=== PATIENT | female | born 1935 | race Caucasian/White ===

== ENCOUNTER 2016-09-26 23:07 | Emergency (ER) | payer OTHER ==
[~2016-09-26] VITALS: Ht 175.3 cm; Wt 68.0 kg
--- NOTE | ~2016-09-26 | EKG ---
[place] [address] [facility] [place] [address] ELECTROCARDIOGRAM REPORT Name: SUE PRINCE Room #: [facility]#: [id number] Admission: 09/26/16 Attend Phys: Discharge: 09/27/16 Date of : 31 Report #: [id number] THIS REPORT FOR: //name// [facility] ED Test Date: 2016-09-26 Test Time: 23:20:42 Pat Name: SUE PRINCE Department: Room: Gender: F Sec Reporting Consultant: gm : 1935 Requested By: Zoila Oleary Order Number: [id number] MD: Joao Pickering Measurements Intervals [place] Rate: 96 P: -5 NC: 148 QRS: -55 QRSD: 113 T: 63 QT: 357 QTc: 452 Interpretive Statements Sinus rhythm LAD, consider left anterior fascicular block Compared to ECG 03/23/2014 20:21:30 Ventricular premature complex(es) no longer present Electronically Signed On 09-27-2016 8:57:18 CDT by Joao Pickering [email or web address] <ELECTRONICALLY SIGNED> By: Joao Pickering MD, [facility] 09/27/16 0857 2320 19 Joao Pickering MD, [facility] /EPI
[~2016-09-26 23:07] MED LIST: ADULT LOW DOSE81 MG PO; BENICAR20 MG PO; BIAXIN 500 MG500 M1 PO; BONIVA150 MG PO; CITRACAL + BON1 EACH PO; CO Q-10100 MG PO; COLACE100 MG PO; CYMBALTA60 MG PO; DIOVAN160 MG PO; DIOVAN40 MG PO; FISH OIL 1,0001 EAC5 PO; FLONASE 0.05%50 MCG NASAL; IBUPROFEN 400400 M1 OR; LASIX 40 MG TAB40 M1 PO; LASIX 40 MG TAB40 MG OR; LEVOXYL100 MCG PO; MAGNESIUM250 M1 PO; MINOCYCLINE 5050 M1 PO; MOM OR; MUCINEX TA600 MG/TAB OR; MUCINEX600 MG PO; MULTIVITAMINS PO; NEURONTIN 300300 M1 PO; NEXIUM40 MG PO; PEPCID40 MG PO; PREDNISONE 5 MG5 M1 PO; PREDNISONE50 MG PO; PROAIR HFA8.5 GM IH; PROCARDIA XL30 MG PO; PROTONIX40 M2 PO; QVAR HFA 880 MCG/UN1 INH; SIMVASTATIN10 MG PO; SINGULAIR 10 MG10 M1 PO; SPIRIVA INH; STOOL SOFTENER50 MG PO; SYMBICORT160 MCG/4. OR; VENTOLIN17 GM OR; VITAMIN D1000 UNI1 PO; ZITHROMYCIN PO
[2016-09-26] MEDS ORDERED: PREDNISOLONE 5 M5 M1 PO (23:19)
[2016-09-26 23:45] LABS: HEMOGLOBIN 11.1 gm/dL (12.0-15.0); MCH 28.6 pg (26.0-34.0); MCHC 32.6 g/dL (28.0-37.0); MCV 87.8 fL (80.0-100.0); RBC 3.88 mil/uL (4.20-5.00); RDW 17.6 % (10.5-14.5); WBC 11.7 thou/uL (4.0-11.0)
[2016-09-26 23:54] LABS: ANION GAP 9 mmol/L (7-16); BUN 30 mg/dL (7-18); CALCIUM 9.2 mg/dL (8.5-10.1); CHLORIDE 103 mmol/L (98-107); CO2 28 mmol/L (21-32); CREATININE 1.2 mg/dL (0.6-1.0); GLUCOSE 114 mg/dL (74-106); POTASSIUM 3.8 mmol/L (3.5-5.1); SODIUM 140 mmol/L (136-145)
[2016-09-27 00:05] LABS: ALBUMIN 3.7 g/dL (3.4-5.0); ALKALINE PHOSPHATASE 77 U/L (46-116); SGOT 25 U/L (15-37); SGPT 26 U/L (30-65); TOTAL BILIRUBIN 0.5 mg/dL (<0.1-1.0); TOTAL PROTEIN 7.6 g/dL (6.4-8.2); TROPONIN-I < 0.04 ng/mL (<0.04-0.07)
[2016-09-27] MEDS ORDERED: TESSALON PERLE100 MG PO (01:00)
[2016-09-27] MEDS ORDERED: ZPAK PO (01:00)
[2016-09-27] MEDS ORDERED: PREDNISONE 20 M20 MG PO (01:00)
== END 2016-09-27 01:23 | disposition home or self-care (01) ==
LOC: ER 23:07
PROVIDERS: Physician Assistant
DX: J44.1 Chronic obstructive pulmonary disease with (acute) exacerbation (principal); E03.9 Hypothyroidism, unspecified; K21.9 Gastro-esophageal reflux disease without esophagitis; F32.9 Major depressive disorder, single episode, unspecified; I10 Essential (primary) hypertension; Z96.652 Presence of left artificial knee joint; Z90.710 Acquired absence of both cervix and uterus; Z88.0 Allergy status to penicillin; Z88.7 Allergy status to serum and vaccine; Z88.1 Allergy status to other antibiotic agents; Z88.5 Allergy status to narcotic agent; Z87.891 Personal history of nicotine dependence; Z88.4 Allergy status to anesthetic agent

== ENCOUNTER → 2016-11-23 | Outpatient (CLI) | payer OTHER ==
[~2016-11-23] MED LIST changes: +PREDNISOLONE 5 M5 M1 PO; +PREDNISONE 20 M20 MG PO; +TESSALON PERLE100 MG PO; +ZPAK PO
== END ==
LOC: RAD 12:52
DX: Z12.31 Encounter for screening mammogram for malignant neoplasm of breast (principal)

== ENCOUNTER → 2017-09-05 | Outpatient (CLI) | payer OTHER ==
[~2017-09-05] VITALS: Ht 170.2 cm; Wt 75.9 kg
[~2017-09-05] MED LIST changes: +ALBUTEROL2.5 MG/31 INH; +AVAPRO300 MG PO; +AZITHROMYCIN 2250 MG PO; +LIPITOR10 MG PO; +OMEGA 3 1,0001 EACH PO; -PREDNISOLONE 5 M5 M1 PO; +PREDNISONE 10 M10 M1 PO; +ZANTAC 150MG T150 MG PO
--- NOTE | ~2017-09-05 | HPC ---
[facility] [place] [address] PAIN MANAGEMENT CONSULTATION Name: SUE PRINCE Room #: [facility].#: [id number] Admission: 09/05/17 Attend Phys: Angel Beth DO Discharge: Date of : 31 Report #: [id number] THIS REPORT FOR: //name// CC: Justin Beth DATE OF SERVICE: 09/05/2017 CHIEF COMPLAINT: Low back pain, bilateral lower extremity pain and paresthesias. HISTORY OF PRESENT ILLNESS: As you know, the patient is an 82-year-old female, who had acute onset of low back pain, bilateral lower extremity pain, presented on 07/16/2017. She indicates pain began without inciting injury or trauma. The patient indicates she has had previous surgeries by Dr. Bangura, 3-level laminectomy with some improvement in symptoms. Unfortunately, her pain did begin to return. At our last visit, we sent the patient for imaging study as there had been no new imaging since her surgery and I was concerned about some changes in the lumbar area. She returns to review those findings and discuss options for treatment. Today, the patient is reporting pain at a level of 5/10, states her pain is constant, aching and burning, exacerbated with sleeping on her side, lying down, improves with getting up, repositioning. She returns to discuss options for treatment and to review her MRI. ALLERGIES: PENICILLIN, CEPHALOSPORINS, MORPHINE, CODEINE, TETANUS, PROCAINE, CEFDINIR, MOXIFLOXACIN. CURRENT MEDICATIONS: See extensive list in chart. SOCIAL HISTORY: The patient is a reformed smoker, she quit 22 years ago. She admits 2 alcohol beverages per day. 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 She is not receiving workmen's compensation and she is not involved in litigation in regards to pain. IMAGING: MRI lumbar spine obtained 09/02/2017 shows moderate diffuse disk bulge at L1-L2, mild central canal stenosis, moderate bilateral neural foraminal narrowing at L2-L3, moderate diffuse disk bulge, mild spinal canal stenosis, moderate left severe right neural foraminal narrowing at L3-L4, moderate diffuse bulge, moderate narrowing of the right lateral recess, central canal stenosis, severe left and moderate right neural foraminal narrowing at L4-L5, moderate bilateral facet hypertrophy, moderate diffuse disk bulge, moderate central canal stenosis, severe left, moderate to severe right neural foraminal narrowing at L5-S1, moderate disk bulge, no spinal canal stenosis, moderate bilateral neural foraminal stenosis. PQRS, the patient has osteoarthritis, no rheumatoid arthritis. She rates pain intensity of 5/10. She is a fall risk, [place] [address] PAIN MANAGEMENT CONSULTATION Name: SUE PRINCE Room #: [facility]#: [id number] Admission: 09/05/17 Attend Phys: Angel Beth DO Discharge: Date of : 31 Report #: [id number] had a fall in the last 3 months. She does use ambulatory devices. She is not on blood thinner. She is treated for hypertension. She is not on opioids. She does have a moderate opioid risk assessment. Functional assessment 48/70 indicating moderate to severe interference of daily activities secondary to pain. PHYSICAL EXAMINATION: VITAL SIGNS: Blood pressure 153/88, pulse 88, respiratory rate 20, unlabored. The patient is 98% on room air. Height 5 feet 7 inches tall, weight 167.4 pounds, BMI calculated at 26.2. GENERAL: Well-developed, well-nourished, well-hydrated 82-year-old female, appears stated age, placing current pain score around 5/10. HEENT: Normocephalic, atraumatic. Pupils equal, round, reactive to light. EXTREMITIES: Show no clubbing, no cyanosis, no edema. MUSCULOSKELETAL: Seated straight leg raising negative. Supine straight leg raising positive on the right. DREW test negative. Modified Gaenslen's positive for axial low back pain. Ankle clonus negative. Babinski is negative. Gait appears to be antalgic. Kyphotic posture noted in standing position. ASSESSMENT: 1. Lumbar radiculopathy. 2. Spinal stenosis of the lumbar spine. 3. Displacement of lumbar intervertebral disk with radiculopathy. 4. Lumbosacral spondylosis with radiculopathy. 5. Intractable pain. PLAN: 1. The patient returns today in followup visit where we have reviewed in its entirety the MRI of the lumbar spine obtained on 09/02/2017. The patient and I went over the MRI and how it correlated to her symptoms. It does appear symptoms are related to the L4-L5 level and a moderate stenosis noted here. We discussed the options of treatment once again with the patient, which would include physical therapy, stretching exercises, medication management with neuropathic pain medications, epidural injections, spinal cord stimulator therapy and surgical options. After reviewing the risks and benefits of all proposed treatment options and given the findings on MRI, the patient chose to undergo lumbar epidural injection. The patient was advised risks and benefits of a lumbar epidural injection. These risks include, but are not necessarily limited to bleeding, bruising, infection, worsening pain, no relief of pain, also risk of temporary or permanent muscle weakness, temporary or permanent paralysis, possible . The patient states understood and wished to proceed. 2. No medication changes made at today's visit. The patient to continue current medical therapy as previously prescribed. 3. We will see the patient back in followup visit in approximately [address] [address] PAIN MANAGEMENT CONSULTATION Name: SUE PRINCE Room #: [facility].#: [id number] Admission: 09/05/17 Attend Phys: Angel Beth DO Discharge: Date of : 33 Report #: [id number] that time, review the efficacy of the epidural injection and determine if next in the series of epidural injections would be recommended. PROCEDURE NOTE DESCRIPTION OF PROCEDURE: L5-S1 right paramedian epidural steroid injection under fluoroscopic guidance. This is the first procedure of the first series that the patient is undergoing. After obtaining written consent, the patient was taken back to the fluoroscopy suite, placed in a prone position with pillow under the abdomen to decrease lumbar lordosis. The skin overlying the lumbosacral area was then prepped and draped in aseptic fashion. The L5-S1 vertebral interspace was then identified by AP fluoroscopy. The skin and subcutaneous tissue overlying the target site of injection was anesthetized with 3 mL 1% lidocaine. A 20 gauge 3-1/2 inch Tuohy needle was then advanced under fluoroscopic guidance towards the epidural space using a right paramedian approach. The epidural space was identified using loss of resistance to air technique. After negative aspiration for heme or cerebrospinal fluid, a total of 1 mL of Omnipaque was injected. A lumbar epidurogram was confirmed using both AP and lateral fluoroscopy. After negative aspiration for heme or cerebrospinal fluid, 5 mL of a solution containing 2 mL 40 mg per mL, 80 mg total triamcinolone, 3 mL lidocaine 1% was injected in increments. Contrast spread was noted posterior epidural space. The needle was then retracted approximately half way and needle tract flushed with 1 mL of 1% lidocaine. Needle was then removed. There were no apparent sensory or motor deficits in the lower extremity following the procedure. A sterile bandage was placed over the injection site. The heart rate, pulse, oximetry and blood pressure were continuously monitored after the procedure. There were no complications. The patient tolerated the procedure well and was carefully escorted to the recovery room in stable condition. There were no apparent complications. After meeting discharge criteria, the patient was then discharged home. <ELECTRONICALLY SIGNED> By: Angel Beth DO 09/12/17 0810 1555 09 Angel Beth DO /nt
[2017-09-05 11:30] VITALS: BP 153/88
== END | disposition home or self-care (01) ==
LOC: PAIN 06:19
DX: M51.16 Intervertebral disc disorders with radiculopathy, lumbar region (principal); M48.061 Spinal stenosis, lumbar region without neurogenic claudication; M47.27 Other spondylosis with radiculopathy, lumbosacral region; G89.29 Other chronic pain; J44.9 Chronic obstructive pulmonary disease, unspecified; Z88.0 Allergy status to penicillin; Z88.8 Allergy status to other drugs, medicaments and biological substances; Z87.891 Personal history of nicotine dependence; Z98.890 Other specified postprocedural states; Z79.899 Other long term (current) drug therapy; Z79.891 Long term (current) use of opiate analgesic; Z79.4 Long term (current) use of insulin; Z79.82 Long term (current) use of aspirin

== ENCOUNTER 2017-09-07 04:38 | Inpatient (IN) | payer OTHER ==
[~2017-09-07] VITALS: Ht 170.2 cm; Wt 81.6 kg
[2017-09-07] VITALS (7 sets, daily range): BP systolic 97–161; BP diastolic 75–93
--- NOTE | ~2017-09-07 | 2DMMODE ---
[facility] [address] [place] [address] 2 D/M-MODE ECHOCARDIOGRAM Name: NIKISUE Cheri Room #: 358-P [facility] IN ..#: [id number] Admission: 09/07/17 Attend Phys: Juancho Rodriguez MD Discharge: Date of : 31 Date of Service: 09/07/17 1216 Report #: [id number] THIS REPORT FOR: //name// APPROVED REPORT Study performed: 09/07/2017 10:28:09 EXAM: Comprehensive 2D, Doppler, and color-flow Echocardiogram Patient Location: Echo lab Room #: [facility] Status: routine BSA: 1.93 HR: 93 bpm BP: 161/81 mmHg Other Information Study Quality: Good Indications COPD Dyspnea Hypertension/HDD 2D Dimensions RVDd: 32.07 mm LVEF(%): 50.26 (>50%) IVSd: 11.69 (7-11mm) LVOT Diam: 22.14 (18-24mm) LVDd: 54.06 mm PWd: 11.96 (7-11mm) Ascending Ao: 28.92 (22-36mm) LVDs: 40.12 (25-40mm) Aortic Root: 31.71 mm IVC: 25.00 mm Woo's LVEF: 50.26 % Volumes Left Atrial Volume (Systole) Single Plane 4CH: 85.94 mL Single Plane 2CH: 70.15 mL LA ESV Index: 43.00 mL/m2 Aortic Valve AoV Peak Jf.: 1.64 m/s AO Peak Gr.: 10.80 mmHg LVOT Max P.74 mmHg LVOT Max V: 1.09 m/s CHRISSY Vmax: 2.55 cm2 AI Vmax: 3.38 m/s AI [place]: 1.62 m/s2 AI PHT: 606.88 ms [facility] [place] [address] 2 D/M-MODE ECHOCARDIOGRAM Name: SUE PRINCE Room #: 358-P [facility]#: [id number] Admission: 09/07/17 Attend Phys: Juancho Rodriguez MD Discharge: Date of : 31 Date of Service: 09/07/17 1216 Report #: [id number] Mitral Valve E/A Ratio: 0.8 MV Decel. Time: 228.55 ms MV E Max Jf.: 1.28 m/s MV A Jf.: 1.60 m/s MV PHT: 66.28 ms IVRT: 103.81 ms Pulmonary Valve PV Peak Jf.: 2.07 m/s PV Peak Gr.: 22.16 mmHg Pulmonary Vein P Vein S: 0.50 m/s P Vein A: 0.48 m/s P Vein D: 0.36 m/s P Vein A Dur.: 175.3 msec P Vein S/D Ratio: 1.39 Tricuspid Valve TR Peak Jf.: 3.73 m/s TR Peak Gr.: 55.57 mmHg PA Pressure: 65.00 mmHg Left Ventricle The left ventricle is normal size. Mild concentric left ventricular hypertrophy. Left ventricular systolic function is mildly decreased. LVEF is 45%. Grade I - abnormal relaxation pattern. Right Ventricle The right ventricle is normal size. The right ventricular systolic function is normal. Atria Left atrium is dilated. Right atrium is at the upper limits of normal. Aortic Valve The aortic valve is normal in structure. Aortic valve is calcified. Trace aortic regurgitation. There is no aortic valvular stenosis. Mitral Valve The mitral valve is normal in structure. Mild to moderate mitral regurgitation. No evidence of mitral valve stenosis. Tricuspid Valve The tricuspid valve is normal in structure. There is mild tricuspid [facility] [address] [place] [address] 2 D/M-MODE ECHOCARDIOGRAM Name: SUE PRINCE Room #: 358-P [facility]#: [id number] Admission: 09/07/17 Attend Phys: Juancho Rodriguez MD Discharge: Date of : 31 Date of Service: 09/07/17 1216 Report #: [id number] regurgitation. Estimated PAP 65 mmHg. There is moderate pulmonary hypertension. Pulmonic Valve The pulmonary valve is normal in structure. Trace pulmonic regurgitation. Great Vessels The aortic root is normal in size. IVC is dilated and collapses <50% with inspiration. Pericardium There is no pericardial effusion. <Conclusion> The left ventricle is normal size. Mild concentric left ventricular hypertrophy. Left ventricular systolic function is mildly decreased. Grade I - abnormal relaxation pattern. The right ventricle is normal size. Left atrium is dilated. Trace aortic regurgitation. Mild to moderate mitral regurgitation. There is mild tricuspid regurgitation. Estimated PAP 65 mmHg. There is moderate pulmonary hypertension. <ELECTRONICALLY SIGNED> By: Mark Llamas MD 09/07/171215 15 15 Mark Llamas MD /INF
--- NOTE | ~2017-09-07 | P ---
[facility] [place] [place] [address] PROCEDURE REPORT Name: SUE PRINCE Room #: 358-P [facility] IN .R.#: [id number] Admission: 09/07/17 Attend Phys: Juancho Rodriguez MD Discharge: Date of : 31 Report #: [id number] THIS REPORT FOR: //name// CC: Rubi Rodriguez DATE OF SERVICE: 09/11/2017 PROCEDURE: Fiberoptic bronchoscopy and bronchioalveolar lavage of the left lower lobe and washings of the other airways. INDICATION: Severe bronchiectasis with exacerbation, mucous plugging, ASA classification class 3. PROCEDURE NOTATION: After discussing risks and benefits of the planned procedure with the patient, she desired to proceed. After obtaining informed consent, she was brought to engineering lab technician 3 where she was placed on continuous cardiopulmonary monitoring and supplemental oxygen. She was then given 4% lidocaine nebulized to anesthetize the upper respiratory tract. Once accomplished, she received conscious sedation. Total of 4 mg of Versed and 25 mcg of fentanyl were titrated during the procedure to provide adequate sedation. Once accomplished, bronchoscope was passed through an oral biteblock until the vocal cords were visualized. Lidocaine 1% was instilled in the vocal cords and then in the trachea to provide topical anesthesia. The airways were then surveyed. FINDINGS: Mainstem, lobar, segmental and subsegmental bronchi were explored. Scattered mucous plugging was noted predominantly in the left lower lobe. Initially some washing of the right middle lobe was obtained; however, this induced some bleeding just with minor suction trauma from the bronchoscope. The oozing had stopped at the end of this. Bronchoscope was then passed into the left lower lobe where a lavage was performed. Slightly bloody cloudy return was returned from the lavage. The patient tolerated well. No noted complications. IMPRESSION: Mucous plugging and bronchiectasis with exacerbation, status post bronchoscopy with lavage. PLAN: Await microbiologic and cytologic tests. By: [id number] [id number] Roscoe Naylor MD /nt
--- NOTE | ~2017-09-07 | EKG ---
[address] [address] ELECTROCARDIOGRAM REPORT Name: SUE PRINCE Room #: 358-P [facility] IN ..#: [id number] Admission: 09/07/17 Attend Phys: Juancho Rodriguez MD Discharge: Date of : 33 Report #: [id number] THIS REPORT FOR: //name// [facility] ED Test Date: 2017-09-07 Test Time: 04:54:30 Pat Name: SUE PRINCE Department: Room: Gender: F Lawn Care Specialist: KHUSHBU : 1935 Requested By: Marlys Sullivan Order Number: [id number] MD: Roman Poole Measurements Intervals [place] Rate: 91 P: 65 AK: 170 QRS: -40 QRSD: 109 T: 72 QT: 378 QTc: 466 Interpretive Statements Sinus rhythm Ventricular premature complex Left atrial enlargement Left ventricular hypertrophy Compared to ECG 09/26/2016 23:20:42 Ventricular premature complex(es) now present Atrial abnormality now present Left ventricular hypertrophy now present Electronically Signed On 09-07-2017 8:23:01 CDT by Roman Poole [email or web address] <ELECTRONICALLY SIGNED> By: Roman Poole MD 09/07/17 0823 0454 0454 Roman Poole MD /EPI
[~2017-09-07 04:38] MED LIST changes: -MUCINEX TA600 MG/TAB OR; +MUCINEX1200 MG PO; +STOOL SOFTENER100 MG PO; -STOOL SOFTENER50 MG PO
[2017-09-07 04:55] LABS: BE(vivo) -0.6 mmol/L (-2 to +3); HCO3 23.3 mmol/L (22.0-26.0); PCO2 35.5 mmHg (35.0-45.0); pH 7.435 (7.360-7.450); sO2 98.9 % (92.0-98.0)
[2017-09-07 04:57] LABS: ABSOLUTE NEUTROPHILS 5.8 thou/uL (1.4-8.2); BASOPHILS 0.7 % (0.0-2.0); EOSINOPHILS 1.1 % (0.0-3.0); HEMATOCRIT 28.8 % (37.0-47.0); HEMOGLOBIN 9.1 gm/dL (12.0-15.0); LYMPHOCYTES 17.4 % (24.0-44.0); MCH 24.9 pg (26.0-34.0); MCHC 31.5 g/dL (28.0-37.0); MCV 79.1 fL (80.0-100.0); MONOCYTES 10.9 % (1.0-8.0); PLATELET COUNT 279 thou/uL (150-400); POLYS 69.9 % (36.0-66.0); RBC 3.64 mil/uL (4.20-5.00); RDW 17.3 % (10.5-14.5); WBC 8.2 thou/uL (4.0-11.0)
[2017-09-07 05:14] LABS: CALCIUM 8.9 mg/dL (8.5-10.1); CREATININE 1.1 mg/dL (0.6-1.0); POTASSIUM 4.1 mmol/L (3.5-5.1)
[2017-09-07 08:51] LABS: TSH 0.977 uIU/mL (0.358-3.740)
[2017-09-07 09:05] LABS: % SATURATION 6 % (20-39); IRON 20 ug/dL (50-170); TIBC 325 ug/dL (250-450)
[2017-09-07 09:20] LABS: FOLIC ACID 18.7 ng/mL (8.6-58.9)
[2017-09-07 17:20] LABS: URINE BILIRUBIN NEGATIVE (Negative); URINE BLOOD NEGATIVE (Negative); URINE CLARITY CLEAR; URINE COLOR YELLOW; URINE GLUCOSE-RANDOM* NEGATIVE (Negative); URINE KETONES NEGATIVE (Negative); URINE NITRITE-REFLEX NEGATIVE (Negative); URINE PROTEIN (DIPSTICK) TRACE (Negative); URINE SPECIFIC GRAVITY 1.015 (1.005-1.035); URINE UROBILINOGEN 0.2 E.U./dl (0.2-1.0)
[2017-09-07 17:21] LABS: URINE LEUKOCYTES-REFLEX 1+ (Negative)
[2017-09-07 17:31] LABS: BACTERIA-REFLEX None Seen /HPF (None Seen); CASTS None Seen /LPF (None Seen); CRYSTALS None Seen /LPF (None Seen); SQUAMOUS 0-3 Few /LPF (0-3); URINE RBC 0-2 Rare /HPF (0-2); URINE WBC-REFLEX 6-15 Few /HPF (0-5)
[2017-09-08 03:32] VITALS: BP 171/89
[2017-09-08 06:09] LABS: ABSOLUTE NEUTROPHILS 8.3 thou/uL (1.4-8.2); BASOPHILS 0.1 % (0.0-2.0); HEMATOCRIT 27.1 % (37.0-47.0); HEMOGLOBIN 8.9 gm/dL (12.0-15.0); LYMPHOCYTES 5.3 % (24.0-44.0); MCH 25.9 pg (26.0-34.0); MCHC 32.9 g/dL (28.0-37.0); MCV 78.8 fL (80.0-100.0); PLATELET COUNT 250 thou/uL (150-400); POLYS 88.6 % (36.0-66.0); RBC 3.44 mil/uL (4.20-5.00); RDW 17.7 % (10.5-14.5); WBC 9.3 thou/uL (4.0-11.0)
[2017-09-08 06:15] LABS: CALCIUM 8.8 mg/dL (8.5-10.1); MAGNESIUM 2.2 mg/dL (1.8-2.4); POTASSIUM 4.4 mmol/L (3.5-5.1)
[2017-09-08 07:55] VITALS: BP 155/80
[2017-09-08 11:04] VITALS: BP 144/71
[2017-09-08 11:31] VITALS: BP 146/87
[2017-09-08 16:14] VITALS: BP 119/68
[2017-09-08 20:10] VITALS: BP 133/69
[2017-09-09 03:29] LABS: HEMOGLOBIN 8.8 gm/dL (12.0-15.0); MCH 25.1 pg (26.0-34.0); MCHC 31.4 g/dL (28.0-37.0); RDW 17.9 % (10.5-14.5); WBC 11.3 thou/uL (4.0-11.0)
[2017-09-09 03:45] LABS: CALCIUM 9.3 mg/dL (8.5-10.1); POTASSIUM 5.2 mmol/L (3.5-5.1)
[2017-09-09 04:22] LABS: PLATELET COUNT ND thou/uL (150-400)
[2017-09-09 05:00] VITALS: BP 146/81
[2017-09-09 08:06] VITALS: BP 141/81
[2017-09-09 11:04] VITALS: BP 134/75
[2017-09-09 15:52] VITALS: BP 130/76
[2017-09-09 20:00] VITALS: BP 144/73
[2017-09-10 04:48] VITALS: BP 142/72
[2017-09-10 06:53] LABS: HEMATOCRIT 27.5 % (37.0-47.0); HEMOGLOBIN 8.9 gm/dL (12.0-15.0); MCH 25.5 pg (26.0-34.0); MCHC 32.3 g/dL (28.0-37.0); MCV 78.9 fL (80.0-100.0); RBC 3.49 mil/uL (4.20-5.00); RDW 17.6 % (10.5-14.5)
[2017-09-10 07:08] LABS: CALCIUM 8.7 mg/dL (8.5-10.1); POTASSIUM 4.3 mmol/L (3.5-5.1)
[2017-09-10 08:00] VITALS: BP 143/76
[2017-09-10 12:00] VITALS: BP 147/80
[2017-09-10 16:00] VITALS: BP 145/67
[2017-09-11 04:50] VITALS: BP 136/80
[2017-09-11 09:18] VITALS: BP 137/76
[2017-09-11 12:00] VITALS: BP 145/84
[2017-09-11 17:33] VITALS: BP 145/71
[2017-09-11 19:45] VITALS: BP 144/77
[2017-09-12 04:00] VITALS: BP 144/70
[2017-09-12 04:07] LABS: ADENOVIRUS Negative (Negative); INFLUENZA A Negative (Negative); INFLUENZA B Negative (Negative); METAPNEUMOVIRUS Negative (Negative); PARAINFLUENZA 1 Negative (Negative); PARAINFLUENZA 2 Negative (Negative); PARAINFLUENZA 3 Negative (Negative); RHINOVIRUS Positive (Negative); RSV A Negative (Negative); RSV B Negative (Negative)
[2017-09-12 06:01] LABS: HEMOGLOBIN 9.1 gm/dL (12.0-15.0); MCH 24.8 pg (26.0-34.0); MCHC 31.5 g/dL (28.0-37.0); MCV 78.8 fL (80.0-100.0); RBC 3.68 mil/uL (4.20-5.00); WBC 15.1 thou/uL (4.0-11.0)
[2017-09-12 06:15] LABS: CALCIUM 8.6 mg/dL (8.5-10.1); POTASSIUM 4.3 mmol/L (3.5-5.1)
[2017-09-12 08:36] VITALS: BP 89/63
[2017-09-12 08:42] VITALS: BP 157/82
[2017-09-12 12:38] VITALS: BP 133/68
[2017-09-12 16:00] VITALS: BP 155/78
[2017-09-12 20:03] VITALS: BP 146/74
[2017-09-13 04:00] VITALS: BP 139/72
[2017-09-13 08:53] VITALS: BP 144/67
[2017-09-13 09:31] LABS: HEMATOCRIT 31.5 % (37.0-47.0); HEMOGLOBIN 10.1 gm/dL (12.0-15.0); MCH 25.2 pg (26.0-34.0); MCHC 32.2 g/dL (28.0-37.0); MCV 78.3 fL (80.0-100.0); RBC 4.02 mil/uL (4.20-5.00); RDW 17.3 % (10.5-14.5); WBC 9.4 thou/uL (4.0-11.0)
[2017-09-13 09:39] LABS: CALCIUM 8.8 mg/dL (8.5-10.1); MAGNESIUM 2.2 mg/dL (1.8-2.4); POTASSIUM 4.7 mmol/L (3.5-5.1)
[2017-09-13 12:29] VITALS: BP 144/67
[2017-09-13 19:36] VITALS: BP 141/80
[2017-09-13 20:04] LABS: BE(vivo) 4.4 mmol/L (-2 to +3); HCO3 27.1 mmol/L (22.0-26.0); PCO2 33.7 mmHg (35.0-45.0); pH 7.524 (7.360-7.450); sO2 98.2 % (92.0-98.0)
[2017-09-14 03:00] VITALS: BP 145/82
[2017-09-14 08:07] VITALS: BP 163/86
[2017-09-14 12:14] VITALS: BP 150/83
[2017-09-14] MEDS ORDERED: CEPACOL SORE T1 EAC8 PO (12:39)
[2017-09-14] MEDS ORDERED: DUONEB 2.5-0.5 M3 ML INH (12:39)
[2017-09-14] MEDS ORDERED: ACETYLCYST200 MG/1 M INH (12:39)
[2017-09-14] MEDS ORDERED: MERREM1 GM IV (12:39)
[2017-09-14] MEDS ORDERED: PREDNISONE 10 M10 MG PO (12:39)
[2017-09-14] MEDS ORDERED: MERREM 500500 MG/12 IV (14:35)
== END 2017-09-14 14:37 | DRG 853 ==
LOC: ER 04:38 → EROBS 05:52 → 3W 05:52
PROVIDERS: Emergency Medicine; Hospitalist; Internal Medicine; Internal Medicine Pulmonary Disease; Nurse Practitioner; Specialist
PROC: 5A09357 Assistance with Respiratory Ventilation, Less than 24 Consecutive Hours, Continuous Positive Airway Pressure (ICD-10-PCS; principal; 2017-09-11)
PROC: 0B9J8ZX Drainage of Left Lower Lung Lobe, Via Natural or Artificial Opening Endoscopic, Diagnostic (ICD-10-PCS; principal; 2017-09-11)
PROC: 5A09357 Assistance with Respiratory Ventilation, Less than 24 Consecutive Hours, Continuous Positive Airway Pressure (ICD-10-PCS; 2017-09-13)
PROC: 5A09357 Assistance with Respiratory Ventilation, Less than 24 Consecutive Hours, Continuous Positive Airway Pressure (ICD-10-PCS; 2017-09-14)
DX: A41.9 Sepsis, unspecified organism (principal); J13 Pneumonia due to Streptococcus pneumoniae; J96.21 Acute and chronic respiratory failure with hypoxia; N17.9 Acute kidney failure, unspecified; T17.590A Other foreign object in bronchus causing asphyxiation, initial encounter; J44.1 Chronic obstructive pulmonary disease with (acute) exacerbation; J98.11 Atelectasis; Z96.653 Presence of artificial knee joint, bilateral; D64.9 Anemia, unspecified; G89.29 Other chronic pain; M54.9 Dorsalgia, unspecified; Z66 Do not resuscitate; I10 Essential (primary) hypertension; K21.9 Gastro-esophageal reflux disease without esophagitis; G62.9 Polyneuropathy, unspecified; I27.20 Pulmonary hypertension, unspecified; Z51.5 Encounter for palliative care; Z90.710 Acquired absence of both cervix and uterus; Z90.12 Acquired absence of left breast and nipple; Z88.6 Allergy status to analgesic agent; Z88.1 Allergy status to other antibiotic agents; Z88.0 Allergy status to penicillin; Z88.8 Allergy status to other drugs, medicaments and biological substances; Z87.891 Personal history of nicotine dependence; Z86.718 Personal history of other venous thrombosis and embolism; Z79.82 Long term (current) use of aspirin; Z79.899 Other long term (current) drug therapy; X58.XXXA Exposure to other specified factors, initial encounter; Y93.89 Activity, other specified; Y92.89 Other specified places as the place of occurrence of the external cause; Y99.8 Other external cause status
CPT/HCPCS: 10779

== ENCOUNTER → 2017-10-08 | Outpatient (CLI) | payer OTHER ==
[~2017-10-08] MED LIST changes: +ACETYLCYST200 MG/1 M INH; +CEPACOL SORE T1 EAC8 PO; +DUONEB 2.5-0.5 M3 ML INH; +MERREM 500500 MG/12 IV; +MERREM1 GM IV; +PREDNISONE 10 M10 MG PO
== END ==
LOC: SLEEPLAB 13:11
DX: G47.33 Obstructive sleep apnea (adult) (pediatric) (principal)

== ENCOUNTER → 2017-10-18 | Outpatient (CLI) | payer OTHER | LOC: RAD 11:36 | DX: R06.00 Dyspnea, unspecified (principal) ==

== ENCOUNTER → 2017-10-24 | Outpatient (CLI) | payer OTHER | LOC: SLEEPLAB 13:23 | DX: G47.33 Obstructive sleep apnea (adult) (pediatric) (principal) ==

== ENCOUNTER → 2017-11-08 | Outpatient (CLI) | payer OTHER | LOC: RAD 14:57 | DX: J98.4 Other disorders of lung (principal) ==

== ENCOUNTER 2018-01-30 04:15 | Inpatient (IN) | payer OTHER ==
[~2018-01-30] VITALS: Ht 170.2 cm; Wt 72.3 kg
--- NOTE | ~2018-01-30 | HC ---
[facility] [place] [address] CONSULTATION Name: SUE PRINCE Room #: 419-P [facility] IN M.R.#: [id number] Admission: 01/30/18 Attend Phys: Deangelo Perez Discharge: Date of : 31 Report #: [id number] THIS REPORT FOR: //name// CC: Justin Perez TYPE OF REPORT: Pulmonary consultation. REFERRAL PHYSICIAN: Deangelo Perez M.D. PRIMARY CARE PHYSICIAN: Justin Edmondson M.D. REASON FOR REFERRAL: Dyspnea. HISTORY OF PRESENT ILLNESS: The patient is an 82-year-old white female with known COPD and bronchiectasis, presents with increasing dyspnea. A Pulmonary consultation was requested. The patient has been followed for COPD, bronchiectasis and sleep apnea in the Pulmonary Department. She has seen Dr. Taye Titus in the past. For her sleep apnea, she is on BiPAP 14/6 cm H2O. She has severe COPD, baseline FEV1 of 0.9 liters or 52% predicted. She has known bronchiectasis. She is normally on 2 liters with exercise and 1 liters with rest. She has Proventil HFA, nebulized albuterol p.r.n., Symbicort 160 mcg 2 puffs twice a day and Spiriva once a day. She was just seen in the pulmonary office on January 07. She was doing fairly well at that time. Her FEV1 on that visit had improved to 1.2 liters or 71% predicted. About 2 weeks ago, she started to notice increasing dyspnea. She had a nonproductive cough. She had a fever of 101 degrees Fahrenheit. With worsening symptoms, she presented to the Emergency Room. Chest x-ray shows mild right lower lobe and left lower lobe infiltrates. Cardiomegaly is present. Otherwise, denies any chest pain or hemoptysis. PAST MEDICAL HISTORY: Notable for bronchiectasis; COPD, gugi-ji-brqjvtnj impairment, chronic O2 at 1 liters and 2 liters with exertion; also component of asthma overlap; coronary artery disease with ischemic cardiomyopathy; ejection fraction 35% on echocardiogram in 2008; gastroesophageal reflux disease; hyperlipidemia; hypertension; hypothyroidism; moderate mitral regurgitation; VIVI, on BiPAP; Raynaud's and spinal stenosis. PAST SURGICAL HISTORY: Notable for bladder suspension surgery, carpal tunnel surgery, hysterectomy, knee arthroplasty, lumbar spinal surgery, mastectomy and [facility] [address] [place] [address] CONSULTATION Name: SUE PRINCE Room #: 419-P [facility] IN [facility]#: [id number] Admission: 01/30/18 Attend Phys: Deangelo Perez Discharge: Date of : 31 Report #: [id number] sinus surgery. ALLERGIES: To CODEINE, which causes hives; PENICILLIN, causes swelling; CHAPO inhibitors, reactions not specified; BETA BLOCKERS, reactions unspecified; CEPHALOSPORINS, reactions unspecified; LIDOCAINE, no reaction specified; SULFA DRUGS, causes severe swelling; TETANUS TOXOID, reaction not specified; LEVOFLOXACIN, causes rash and MORPHINE, causes pruritus. CURRENT HOME MEDICATIONS: Reviewed and is listed in the MAR. FAMILY HISTORY: Notable for mother at the age of 54. Father at the age of 75. 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 She has smoked 1-1/2 packs a day for about 40 years, quit in 1997. She drinks socially. REVIEW OF SYSTEMS: As mentioned above, otherwise 10-point system review negative. PHYSICAL EXAMINATION: GENERAL: She is awake, alert, appears to be mildly dyspneic. Otherwise, in no distress. VITAL SIGNS: Temperature is 97.7 degrees Fahrenheit, pulse is 93, respiratory rate is 16, blood pressure 160/80 mmHg and saturation 99%. HEENT: Unremarkable. NECK: Supple, without any lymphadenopathy or thyromegaly. CHEST: Breath sounds are fair with mild bilateral crackles. Mild wheezes noted. CARDIOVASCULAR: Normal S1 and S2. There are no murmurs or gallop. There is no JVD. There is no carotid bruit. Pulses are 2+/4+ bilaterally. ABDOMEN: Soft and nontender. No organomegaly or masses felt. GENITOURINARY: Deferred. RECTAL: Deferred. EXTREMITIES: There is no edema, cyanosis or clubbing. RADIOLOGICAL DATA: Chest x-ray as mentioned above showing mild bibasilar infiltrates. LABORATORY DATA: Influenza swab is negative. Procalcitonin level of 0.3. Electrolytes: Sodium 134, potassium 3.6, chloride 99, CO2 is 25, BUN is 23 and creatinine is 1.2. WBC 10,100; hemoglobin is 7.5 and platelets are normal and no evidence of bandemia. Troponin is normal. Arterial blood gas revealed pH 7.47, pCO2 of 30 and pO2 of 65 on 2 liters of O2. IMPRESSION: 1. Odbmz-fc-vbwkrxa hypoxic respiratory failure in this 82-year-old white [facility] [address] [place] [address] CONSULTATION Name: SUE PRINCE Room #: 419-P [facility] IN M.R.#: [id number] Admission: 01/30/18 Attend Phys: Deangelo Perez Discharge: Date of : 31 Report #: [id number] female with history of chronic obstructive pulmonary disease/asthma overlap along with bronchiectasis. Chest x-ray shows mild bibasilar infiltrates. Pneumonia is suspected. We will consider community acquired. 2. Chronic obstructive pulmonary disease/questionable asthma overlap, bronchiectasis exacerbation. 3. Febrile illness, as mentioned above, suspect pneumonia, chronic steroids, she is on prednisone 10 mg once a day. 4. Hypothyroidism. 5. Coronary artery disease with ischemic cardiomyopathy, ejection fraction 35%. 6. Mitral regurgitation. 7. Obstructive sleep apnea, on bilevel positive airway pressure. 8. Raynaud's. 9. Spinal stenosis. RECOMMENDATIONS: Agree with plans, corticosteroids, bronchodilators along with broad-spectrum antibiotics. Infectious Disease is involved. DVT and GI prophylaxis is recommended. Given the chronic steroids, we will taper steroids a slower than normal. We will also try to assess whether the patient could be weaned off the corticosteroids as an outpatient. We will continue BiPAP. Thank you for this consultation. <ELECTRONICALLY SIGNED> By: Edward Kohli MD 02/02/18 1906 1811 0453 Edward Kohli MD /nt
--- NOTE | ~2018-01-30 | HC ---
[facility] [address] [address] CONSULTATION Name: SUE PRINCE Room #: 419-P ADM IN M.R.#: [id number] Admission: 01/30/18 Attend Phys: Deangelo Perez Discharge: Date of : 31 Report #: [id number] THIS REPORT FOR: //name// CC: Justin Perez DATE OF SERVICE: 01/30/2018 INFECTIOUS DISEASE CONSULTATION: REASON FOR CONSULTATION: Evaluation concerning pneumonia. HISTORY OF PRESENT ILLNESS: The patient is an 82-year-old with underlying history of COPD and bronchiectasis. She has issues with recurring exacerbation of her COPD and bronchitis. She is on prednisone 10 mg a day at home and oxygen at 2 liters. Takes her nebulizers p.r.n. and daily steroid inhalers. Last week, noticed increased congestion and cough, then developed fever. She had purulent sputum production, presents to the Emergency Room for further evaluation. Given IV steroids and put on meropenem. Overall, feels a bit better today. Oxygen was increased up to 4 liters. She denies any aspiration episodes. There has been no travel. No other exposures to ill persons. She had no pleuritic chest pain. No congestive heart failure symptoms. She denies any pleuritic chest pain. No hemoptysis. Sputum now is relatively thick in small amounts, dark green in color. ALLERGIES: Multiple including PENICILLIN, CEPHALOSPORINS, QUINOLONES, MORPHINE, CODEINE, TETANUS, PROCAINE. MEDICATIONS: As noted on MAR including meropenem. Solu-Medrol was started. PAST MEDICAL HISTORY: Lumbar laminectomy, hysterectomy, mastectomy, bilateral total knee arthroplasties, COPD, pneumonia, bronchiectasis. FAMILY HISTORY: Noncontributory. SOCIAL HISTORY: Past smoker, no significant alcohol intake. REVIEW OF SYSTEMS: CONSTITUTIONAL: There has been no weight loss. No night sweats. Acute febrile illness as noted above. SKIN: Without rash or decubitus. No lymphadenopathy. PULMONARY: As above. CARDIOVASCULAR: As above. GASTROINTESTINAL: Negative. GENITOURINARY: Negative. [facility] [address] [place] [address] CONSULTATION Name: SUE PRINCE Room #: 419-P [facility] IN M.R.#: [id number] Admission: 01/30/18 Attend Phys: Deangelo Domenic Chris Discharge: Date of : 33 Report #: [id number] MUSCULOSKELETAL: Negative. NEUROLOGIC: Negative. PSYCHIATRIC: Negative. HEMATOLOGIC AND LYMPHATICS: Negative. PHYSICAL EXAMINATION: VITAL SIGNS: Afebrile and hemodynamically stable. She was alert and cooperative. Maximum temperature was 37.8 degrees. She is on 3 liters of oxygen per nasal cannula. GENERAL: She was sitting up to the side of the bed, in no distress. She had loose nonproductive cough. Mental status was normal. Mood normal. SKIN: Without rash. No peripheral adenopathy. NECK: Supple. HEENT: Without conjunctivitis or scleral icterus. Mouth without mucositis or lesion. LUNGS: Coarse breath sounds posteriorly. She had scattered wheezes. No consolidation. HEART: Regular, without murmur, gallop or rub. ABDOMEN: Soft and nontender. No hepatosplenomegaly or mass. EXTREMITIES: Without peripheral edema. No arthritis changes. NEUROLOGIC: Nonfocal with normal cranial nerves. Deep tendon reflexes, strength, and sensation distally. Mood was normal with no anxiety or depression symptoms. LABORATORY STUDIES: Chest x-ray with bilateral interstitial changes most consistent with edema. Procalcitonin 0.3. BNP 2798. Influenza antigen negative. Lactate 0.8. Sodium 133, potassium 4.2, bicarbonate 25, creatinine 1.4, hemoglobin 10.4, platelet count 196,000, white count 9.2. ABGs on 2 liters showed a pO2 of 65, pCO2 of 30, pH 7.47. Blood and sputum cultures are pending. IMPRESSION: An 82-year-old with exacerbation of chronic obstructive pulmonary disease and bronchiectasis. She has bilateral interstitial infiltrates may be a component of congestive heart failure versus interstitial pneumonitis. Chronic corticosteroids, remains on chronic oxygen. She also has pulmonary hypertension with moderate mitral regurgitation. She is a past smoker. She has multiple drug allergies. RECOMMENDATION: We will continue IV antibiotic therapy with Bactrim and meropenem. Check urine antigens and nasopharyngeal swab for viral respiratory panel, had diuretic and repeat chest x-ray. Await sputum culture. Continue corticosteroids and taper once stabilizes. <ELECTRONICALLY SIGNED> By: Kirt Mckenzie MD 01/31/18 1031 [id number] Kirt Mckenzie MD /nt
--- NOTE | ~2018-01-30 | EKG ---
[address] [place] [address] ELECTROCARDIOGRAM REPORT Name: SUE PRINCE Room #: 419-P ADM IN M.R.#: [id number] Admission: 01/30/18 Attend Phys: Deangelo Perez Discharge: Date of : 33 Report #: [id number] THIS REPORT FOR: //name// [facility] ED Test Date: 2018-01-30 Test Time: 04:34:14 Pat Name: SUE PRINCE Department: Room: 419 Gender: F Superintendent Police: thierno : 1935 Requested By: Mejia Gregg Order Number: [id number] MD: Roman Poole Measurements Intervals Colp Rate: 103 P: 1 NC: 164 QRS: -47 QRSD: 104 T: 78 QT: 325 QTc: 426 Interpretive Statements Sinus tachycardia Multiple ventricular premature complexes LAD, consider left anterior fascicular block Left ventricular hypertrophy Anterior Q waves, possibly due to LVH Compared to ECG 09/07/2017 04:54:30 Q waves now present Sinus rhythm no longer present Atrial abnormality no longer present Electronically Signed On 01-30-2018 9:55:59 CDT by Roman Poole [email or web address] <ELECTRONICALLY SIGNED> By: Roman Poole MD 01/30/18 0955 0434 0434 Roman Poole MD /EPI
[2018-01-30 04:16] VITALS: BP 140/108
[2018-01-30 04:36] LABS: BE(vivo) -1.3 mmol/L (-2 to +3); HCO3 21.6 mmol/L (22.0-26.0); PCO2 30.1 mmHg (35.0-45.0); PO2 65.9 mmHg (80.0-100.0); pH 7.473 (7.360-7.450); sO2 94.5 % (92.0-98.0)
[2018-01-30 04:44] LABS: ANION GAP 10 mmol/L (7-16); BUN 22 mg/dL (7-18); CALCIUM 8.4 mg/dL (8.5-10.1); CHLORIDE 98 mmol/L (98-107); CO2 25 mmol/L (21-32); CREATININE 1.4 mg/dL (0.6-1.0); GLUCOSE 128 mg/dL (74-106); POTASSIUM 4.2 mmol/L (3.5-5.1); SODIUM 133 mmol/L (136-145)
[2018-01-30 04:48] LABS: HEMATOCRIT 30.6 % (37.0-47.0); HEMOGLOBIN 10.4 gm/dL (12.0-15.0); MCH 28.3 pg (26.0-34.0); MCHC 33.9 g/dL (28.0-37.0); MCV 83.4 fL (80.0-100.0); RBC 3.67 mil/uL (4.20-5.00); RDW 19.1 % (10.5-14.5); WBC 9.2 thou/uL (4.0-11.0)
[2018-01-30 04:53] LABS: TROPONIN-I <0.06 ng/mL (<0.06)
[2018-01-30 05:50] VITALS: BP 126/59
[2018-01-30 06:10] VITALS: BP 114/60
[2018-01-30 07:37] VITALS: BP 141/47
[2018-01-30 14:27] VITALS: BP 114/60
[2018-01-30 19:20] VITALS: BP 140/74
[2018-01-31 04:01] LABS: ABSOLUTE NEUTROPHILS 9.5 thou/uL (1.4-8.2); BASOPHILS 0.1 % (0.0-2.0); HEMATOCRIT 28.9 % (37.0-47.0); HEMOGLOBIN 9.5 gm/dL (12.0-15.0); LYMPHOCYTES 2.5 % (24.0-44.0); MCH 27.5 pg (26.0-34.0); MCHC 32.9 g/dL (28.0-37.0); MCV 83.5 fL (80.0-100.0); PLATELET COUNT 180 thou/uL (150-400); POLYS 93.4 % (36.0-66.0); RBC 3.47 mil/uL (4.20-5.00); RDW 18.9 % (10.5-14.5); WBC 10.1 thou/uL (4.0-11.0)
[2018-01-31 04:04] LABS: CALCIUM 8.4 mg/dL (8.5-10.1); CREATININE 1.2 mg/dL (0.6-1.0); MAGNESIUM 2.1 mg/dL (1.8-2.4); POTASSIUM 3.6 mmol/L (3.5-5.1)
[2018-01-31 08:05] VITALS: BP 150/67
[2018-01-31 17:22] VITALS: BP 135/76
[2018-01-31 20:44] VITALS: BP 122/64
[2018-02-01 04:51] VITALS: BP 141/65
[2018-02-01 08:08] VITALS: BP 163/83
[2018-02-02 07:12] LABS: HEMATOCRIT 30.7 % (37.0-47.0); HEMOGLOBIN 10.1 gm/dL (12.0-15.0); MCH 27.6 pg (26.0-34.0); MCHC 32.8 g/dL (28.0-37.0); MCV 83.9 fL (80.0-100.0); RBC 3.66 mil/uL (4.20-5.00); RDW 18.7 % (10.5-14.5); WBC 10.8 thou/uL (4.0-11.0)
[2018-02-02 07:30] LABS: CALCIUM 9.2 mg/dL (8.5-10.1); CREATININE 1.2 mg/dL (0.6-1.0); POTASSIUM 4.7 mmol/L (3.5-5.1)
[2018-02-02 08:17] VITALS: BP 151/78
[2018-02-02 19:17] VITALS: BP 141/88
[2018-02-02 23:06] LABS: ADENOVIRUS Negative (Negative); INFLUENZA A Negative (Negative); INFLUENZA B Negative (Negative); METAPNEUMOVIRUS Negative (Negative); PARAINFLUENZA 1 Negative (Negative); PARAINFLUENZA 2 Negative (Negative); PARAINFLUENZA 3 Negative (Negative); RHINOVIRUS Negative (Negative); RSV A Negative (Negative); RSV B Negative (Negative)
[2018-02-03 04:38] VITALS: BP 146/75
[2018-02-03 07:20] VITALS: BP 147/85
[2018-02-03 19:37] VITALS: BP 160/84
[2018-02-04 03:59] VITALS: BP 137/73
[2018-02-04 07:32] VITALS: BP 156/87
[2018-02-04 22:34] VITALS: BP 164/59
[2018-02-05 07:20] VITALS: BP 148/91
[2018-02-05 16:05] VITALS: BP 133/104
[2018-02-05 19:54] VITALS: BP 165/86
[2018-02-06 04:28] LABS: HEMATOCRIT 35.4 % (37.0-47.0); HEMOGLOBIN 11.5 gm/dL (12.0-15.0); MCHC 32.4 g/dL (28.0-37.0); MCV 83.4 fL (80.0-100.0); RBC 4.25 mil/uL (4.20-5.00); RDW 18.5 % (10.5-14.5); WBC 10.1 thou/uL (4.0-11.0)
[2018-02-06 04:42] LABS: ALBUMIN 3.2 g/dL (3.4-5.0); CALCIUM 8.9 mg/dL (8.5-10.1); CREATININE 1.2 mg/dL (0.6-1.0); MAGNESIUM 2.7 mg/dL (1.8-2.4); POTASSIUM 4.6 mmol/L (3.5-5.1); TOTAL BILIRUBIN 0.4 mg/dL (<0.1-1.0)
[2018-02-06 04:43] VITALS: BP 144/84
[2018-02-06 05:09] LABS: TOTAL PROTEIN 6.7 g/dL (6.4-8.2)
[2018-02-06] MEDS ORDERED: BACTRIM DS TAB1 EACH PO (09:13)
[2018-02-06] MEDS ORDERED: PREDNISONE 10 M10 MG PO (09:14)
[2018-02-06 11:06] VITALS: BP 193/60
[2018-02-06 12:10] VITALS: BP 193/60
[2018-02-06 16:40] VITALS: BP 164/91
[2018-02-06 21:29] VITALS: BP 103/80
[2018-02-07 05:28] VITALS: BP 152/79
[2018-02-07 09:06] VITALS: BP 154/86
[2018-02-07] MEDS ORDERED: REGLAN 10 MG TA10 MG PO (09:37)
[2018-02-07] MEDS ORDERED: BACTRIM DS TAB1 EACH PO (09:53)
[2018-02-07 09:57] VITALS: BP 193/60
== END 2018-02-07 14:20 | disposition home health service (06) | DRG 871 ==
LOC: ER 04:15 → 4E 05:26 → EROBS 05:26 → 4E 06:14 → ENTRNSPT 02-07 13:35 → EDTRNSPTSTS 02-07 13:37 → 4E 02-07 14:20
PROVIDERS: Emergency Medicine; Internal Medicine Pulmonary Disease; Nurse Practitioner; Nurse Practitioner Family; Specialist
PROC: 05H933Z Insertion of Infusion Device into Right Brachial Vein, Percutaneous Approach (ICD-10-PCS; principal; 2018-02-01)
DX: A41.89 Other specified sepsis (principal); J96.21 Acute and chronic respiratory failure with hypoxia; J18.9 Pneumonia, unspecified organism; N17.9 Acute kidney failure, unspecified; J44.1 Chronic obstructive pulmonary disease with (acute) exacerbation; J81.1 Chronic pulmonary edema; J45.901 Unspecified asthma with (acute) exacerbation; J44.0 Chronic obstructive pulmonary disease with (acute) lower respiratory infection; Z96.653 Presence of artificial knee joint, bilateral; I27.20 Pulmonary hypertension, unspecified; I34.0 Nonrheumatic mitral (valve) insufficiency; I25.10 Atherosclerotic heart disease of native coronary artery without angina pectoris; I25.5 Ischemic cardiomyopathy; M48.00 Spinal stenosis, site unspecified; I73.00 Raynaud's syndrome without gangrene; G47.33 Obstructive sleep apnea (adult) (pediatric); E03.9 Hypothyroidism, unspecified; E78.5 Hyperlipidemia, unspecified; I50.9 Heart failure, unspecified; G62.9 Polyneuropathy, unspecified; Z66 Do not resuscitate; M62.84 Sarcopenia; K21.9 Gastro-esophageal reflux disease without esophagitis; F32.9 Major depressive disorder, single episode, unspecified; G89.29 Other chronic pain; M54.9 Dorsalgia, unspecified; I11.0 Hypertensive heart disease with heart failure; B95.5 Unspecified streptococcus as the cause of diseases classified elsewhere; K59.00 Constipation, unspecified; Z86.718 Personal history of other venous thrombosis and embolism; Z79.82 Long term (current) use of aspirin; Z90.710 Acquired absence of both cervix and uterus; Z90.12 Acquired absence of left breast and nipple; Z88.6 Allergy status to analgesic agent; Z88.0 Allergy status to penicillin; Z88.1 Allergy status to other antibiotic agents; Z88.7 Allergy status to serum and vaccine; Z88.8 Allergy status to other drugs, medicaments and biological substances; Z87.891 Personal history of nicotine dependence; Z79.52 Long term (current) use of systemic steroids; Z79.899 Other long term (current) drug therapy; Z28.21 Immunization not carried out because of patient refusal
CPT/HCPCS: 10183; 27000

== ENCOUNTER → 2018-03-28 | Outpatient (CLI) | payer OTHER ==
[~2018-03-28] VITALS: Ht 170.2 cm; Wt 72.7 kg
[~2018-03-28] MED LIST changes: +BACTRIM DS TAB1 EACH PO; +IBUPROFEN 200200 M1 PO; +NEURONTIN 300M300 M2 PO; +REGLAN 10 MG TA10 MG PO
--- NOTE | ~2018-03-28 | HPC ---
[facility] [place] [address] PAIN MANAGEMENT CONSULTATION Name: SUE PRINCE Room #: REG [facility].#: [id number] Admission: 03/28/18 Attend Phys: Angel Beth DO Discharge: Date of : 33 Report #: [id number] THIS REPORT FOR: //name// CC: Justin Beth DATE OF SERVICE: 03/28/2018 REFERRING PHYSICIAN: Justin Edmondson MD CHIEF COMPLAINT: Low back pain, bilateral lower extremity pain with paresthesias, left greater than right. HISTORY OF PRESENT ILLNESS: As you know, the patient is an 82-year-old female who has been treated for lumbar radicular symptoms involving the lower extremities bilaterally. As you are aware, the patient has spinal stenosis of lumbar spine that is multifactorial causing her symptoms as well as neural foraminal stenosis on the left, which is the source of her current left leg pain. The patient has had surgery with Dr. Randal Bangura, a 3-level laminectomy in 09/2016. The patient was referred to our clinic in 08/2017 where we trialed medication management. Unfortunately, this was not effective. We trialed epidural injection and she noted good benefit. She has been lost to followup visit since 09/05/2017. She returns today to undergo next in the series of epidural injections. ALLERGIES: PENICILLIN, CEPHALOSPORIN, MORPHINE, CODEINE, TETANUS, PROCAINE, CEFDINIR, MOXIFLOXACIN, LEVOFLOXACIN. CURRENT MEDICATIONS: See extensive list in chart. SOCIAL HISTORY: The patient denies tobacco, alcohol, IV or illicit drug use. She is a reformed smoker, quitting 23 years ago. She is unaccompanied today. IMAGING: There is no new imaging available. PQRS: The patient has osteoarthritis of the low back, bilateral knees, bilateral hips. No rheumatoid arthritis. She is placing pain score at 5/10. She is risk for falls. She has had a fall in the last 3 months. She is using a cane for ambulation. We have advised her to switch to a roller walker. She is not on blood thinner. She is treated for hypertension. She is not on chronic opioids. She has a opioid risk that is moderate for addiction. Pain impact tool 48/70 indicating [id number] interference of daily activities secondary to pain. PHYSICAL EXAMINATION: [facility] [address] [place] [address] PAIN MANAGEMENT CONSULTATION Name: SUE PRINCE Room #: REG PAULINO Figueroa#: [id number] Admission: 03/28/18 Attend Phys: Angel Beth DO Discharge: Date of : 33 Report #: [id number] VITAL SIGNS: Blood pressure 130/75, pulse 79, respiratory rate 20 and unlabored. The patient is 98% on room air. Height 5 feet 7 inches tall, weight 160.2 pounds, BMI calculated 25.1. GENERAL: Well-developed, well-nourished, well-hydrated 82-year-old somewhat confused female, placing current pain score at 5/10. HEENT: Normocephalic, atraumatic. Pupils equal, round, reactive to light. EXTREMITIES: Show no clubbing, no cyanosis, no edema. MUSCULOSKELETAL: Seated straight leg raising negative. Supine straight leg raising positive on the left. Karsten's test negative. Modified Gaenslen's positive for axial low back pain. Gait extremely antalgic favoring left lower extremity over right. She is using a cane for ambulation. ASSESSMENT: 1. Lumbar radiculopathy. 2. Progressively worsening spinal stenosis of lumbar spine. 3. Displacement of lumbar intervertebral disk with radiculopathy. 4. Lumbosacral spondylosis with radiculopathy. 5. Lumbar degeneration. 6. Chronic intractable pain. PLAN: 1. The patient has returned today in followup visit indicating improvement in symptoms with epidural injection provided at last visit. She returns today in followup visit to undergo next in the series of epidural injections. The patient and I had a long discussion today about the efficacy of the epidural injection done on 09/05/2017. She is somewhat confused about when her surgery was. She believes she had surgery in August. Review of the record shows that she had surgery in 09/2016. She believes this was in 08/2017. We have been providing epidural injections to this patient since that time to address the ongoing symptoms. She believes that she received the benefit with the injection as she "did not return so I must have been better." She has returned today in followup visit to undergo epidural injection under fluoroscopic guidance to address ongoing pain issues. She has plans to follow up with her neurosurgeon about surgical options. 2. No medication changes made at today's visit. The patient will continue current medical therapy as previously prescribed. 3. We will see the patient back in followup visit on an as needed basis for the possible next in the series of lumbar epidural injections. PROCEDURE NOTE DESCRIPTION OF PROCEDURE: L5-S1 left paramedian epidural steroid injection under fluoroscopic guidance. This is the second procedure of the first series that the patient is undergoing. [address] [address] PAIN MANAGEMENT CONSULTATION Name: SUE PRINCE Room #: REG PAULINO Rasmussen#: [id number] Admission: 03/28/18 Attend Phys: Angel Beth DO Discharge: Date of : 33 Report #: [id number] After obtaining written consent, the patient was taken back to the fluoroscopy suite, placed in a prone position with pillow under the abdomen to decrease lumbar lordosis. The skin overlying the lumbosacral area was then prepped and draped in aseptic fashion. The L5-S1 vertebral interspace was then identified by AP fluoroscopy. The skin and subcutaneous tissue overlying the target site of injection was anesthetized with 3 mL 1% lidocaine. A(n) 20-gauge 3-1/2 inch Tuohy needle was then advanced under fluoroscopic guidance towards the epidural space using a left paramedian approach. The epidural space was identified using loss of resistance to air technique. After negative aspiration for heme or cerebrospinal fluid, a total of 0.5 mL of Omnipaque was injected. A lumbar epidurogram was confirmed using both AP and lateral fluoroscopy. After negative aspiration for heme or cerebrospinal fluid, 5 mL of a solution containing 2 mL 40 mg per mL, 80 mg total triamcinolone, 3 mL lidocaine 1% was injected in increments. Contrast spread was noted in the posterior epidural space. The needle was then retracted approximately half way and needle tract flushed with 1 mL of 1% lidocaine. Needle was then removed. There were no apparent sensory or motor deficits in the lower extremity following the procedure. A sterile bandage was placed over the injection site. The heart rate, pulse, oximetry and blood pressure were continuously monitored after the procedure. There were no apparent complications. The patient tolerated the procedure well and was carefully escorted to the recovery room in stable condition. There were no apparent complications. After meeting discharge criteria, the patient was then discharged home. By: [id number] Angel Beth DO /nt
[2018-03-28 09:45] VITALS: BP 138/75
== END | disposition home or self-care (01) ==
LOC: PAIN 09:34
DX: M51.16 Intervertebral disc disorders with radiculopathy, lumbar region (principal); M48.061 Spinal stenosis, lumbar region without neurogenic claudication; M47.27 Other spondylosis with radiculopathy, lumbosacral region; G89.29 Other chronic pain; I10 Essential (primary) hypertension; J44.1 Chronic obstructive pulmonary disease with (acute) exacerbation; Z79.899 Other long term (current) drug therapy; Z88.0 Allergy status to penicillin; Z88.8 Allergy status to other drugs, medicaments and biological substances; Z87.891 Personal history of nicotine dependence; N28.9 Disorder of kidney and ureter, unspecified

== ENCOUNTER → 2018-04-25 | Outpatient (CLI) | payer OTHER ==
[~2018-04-25] VITALS: Ht 170.2 cm; Wt 73.1 kg
--- NOTE | ~2018-04-25 | HPC ---
[address] [place] [address] PAIN MANAGEMENT CONSULTATION Name: SUE PRINCE Room #: REG [facility].#: [id number] Admission: 04/25/18 Attend Phys: Angel Beth DO Discharge: Date of : 33 Report #: [id number] THIS REPORT FOR: //name// CC: Justin Beth DATE OF SERVICE: 04/25/2018 CHIEF COMPLAINT: Low back pain, bilateral lower extremity pain with paresthesias, left greater than right. HISTORY OF PRESENT ILLNESS: As you know, the patient is an 82-year-old female treated for lumbar radicular symptoms involving lower extremities bilaterally, left greater than right. The patient is having difficulty with remembering dates and times and previous epidural injections. She does not remember the epidural injection we provided her in August, but does remember the one in March. She reports that the March epidural injection provided improvement in symptoms of approximately 90%. Unfortunately, her symptoms returned quite quickly. As you are aware, the patient has undergone extensive surgeries with Dr. Bangura to address lumbar radicular symptoms, but she continues to experience pain that appears to be related to the severe neural foraminal stenosis located in the lower lumbar area. She returns today in followup visit requesting to undergo epidural injection under fluoroscopic guidance and to make some changes in medication management to address neuropathic symptoms. ALLERGIES: PENICILLIN, CEPHALOSPORINS, MORPHINE, CODEINE, TETANUS, PROCAINE, CEFDINIR, MOXIFLOXACIN, LEVOFLOXACIN. CURRENT MEDICATIONS: See extensive list in chart. SOCIAL HISTORY: The patient denies tobacco, alcohol, IV or illicit drug use. She is a reformed smoker. She quit approximately 23 years ago, unaccompanied today. IMAGING: No new imaging available. PQRS, the patient has known arthritic changes of low back, bilateral knees, bilateral hips. No rheumatoid arthritis. She is placing pain intensity at 9/10. She is a fall risk, but has not had a fall in the last 3 months. She does use a cane for ambulation. She is not on blood thinners. She is not treated for hypertension. She is not on chronic opioids. She has a moderate risk of opioid addiction. She is placing pain impact score of 48/70 indicating severe interference of daily activities secondary to pain. PHYSICAL EXAMINATION: [facility] [address] [place] [address] PAIN MANAGEMENT CONSULTATION Name: SUE PRINCE Room #: REG [facility]#: [id number] Admission: 04/25/18 Attend Phys: Angel Beth DO Discharge: Date of : 33 Report #: [id number] VITAL SIGNS: Blood pressure 153/97, pulse 78, respiratory rate 22, O2 sat 97% on room air. Height 5 feet 7 inches tall, weight 161.2 pounds, BMI calculated at 25.2. GENERAL: Well-developed, well-nourished, well-hydrated 82-year-old female, appearing stated age. She is somewhat tachypneic, reporting pain score at 9/10. HEENT: Normocephalic, atraumatic. Pupils equal, round, reactive to light. EXTREMITIES: Show no clubbing, no cyanosis, no edema. MUSCULOSKELETAL: Lower extremity strength is symmetrical. Pain is elicited with hip flexion, knee extension on the left when compared to right. Seated straight leg raising positive on the left. Supine straight leg raising positive on the left. Karsten's test negative. Gait is extremely antalgic favoring left lower extremity over right. ASSESSMENT: 1. Symptomatic lumbar radiculopathy. 2. Progressively worsening spinal stenosis of lumbar spine. 3. Displacement of lumbar intervertebral disk with radiculopathy. 4. Lumbosacral spondylosis with radiculopathy. 5. Foraminal stenosis of the lumbar spine. 6. Lumbar degeneration. 7. Chronic intractable pain. PLAN: 1. The patient returns today in followup visit indicating 90% improvement in overall pain with previous epidural injection. Unfortunately, her symptoms have returned quite quickly. She reports a pain level of 9/10 today. She wishes to undergo the third and the final epidural injection in the 6 months to address lumbar radicular symptoms. She has been advised risks and benefits of procedure, states understood and wished to proceed. 2. We will start the patient on gabapentin starting 300 mg at night. She will continue for 3 nights, then increase to 600 mg at night for 3 nights, then increase to 900 mg at night for 3 nights. If pain continues, then 1 tablet in the morning, 3 tablets at night, continue for 3 nights, then increase to 2 tablets in the morning and 3 tablets at night. I have given the patient #150 tablets and advised the patient to monitor her medication management. If she notes improvement in symptoms, she is to stabilize at that dose, no further escalation. No improvement in symptoms and no side effects. Continue the titration as directed. 3. We will see the patient back in followup visit on an as needed basis for possible next in the series of epidural injections. She will contact our clinic in regards to the dosing of gabapentin that works best for her. She will also contact us if she has any questions or concerns about the medication itself. PROCEDURE NOTE DESCRIPTION OF PROCEDURE: L5-S1 left paramedian epidural steroid injection [address] [address] PAIN MANAGEMENT CONSULTATION Name: SUE PRINCE Room #: REG [facility]#: [id number] Admission: 04/25/18 Attend Phys: Angel Beth DO Discharge: Date of : 33 Report #: [id number] under fluoroscopic guidance. This is the third procedure of the first series that the patient is undergoing. After obtaining written consent, the patient was taken back to the fluoroscopy suite, placed in a prone position with pillow under the abdomen to decrease lumbar lordosis. The skin overlying the lumbosacral area was then prepped and draped in aseptic fashion. The L5-S1 vertebral interspace was then identified by AP fluoroscopy. The skin and subcutaneous tissue overlying the target site of injection was anesthetized with 3 mL 1% lidocaine. A 20 gauge 3-1/2 inch Tuohy needle was then advanced under fluoroscopic guidance towards the epidural space using a left paramedian approach. The epidural space was identified using loss of resistance to air technique. After negative aspiration for heme or cerebrospinal fluid, a total of 1 mL of Omnipaque was injected. A lumbar epidurogram was confirmed using both AP and lateral fluoroscopy. After negative aspiration for heme or cerebrospinal fluid, 3 mL of a solution containing 2 mL 40 mg per mL 80 mg total triamcinolone and 1 mL of lidocaine 1% was injected in increments. Contrast spread was noted post epidural space. The needle was then retracted approximately half way and needle tract flushed with 1 mL of 1% lidocaine. Needle was then removed. There were no apparent sensory or motor deficits in the lower extremity following the procedure. A sterile bandage was placed over the injection site. The heart rate, pulse, oximetry and blood pressure were continuously monitored after the procedure. There were no apparent complications. The patient tolerated the procedure well and was carefully escorted to the recovery room in stable condition. There were no apparent complications. After meeting discharge criteria, the patient was then discharged home. By: [id number] Angel Beth DO /nt
[2018-04-25 11:08] VITALS: BP 153/97
== END | disposition home or self-care (01) ==
LOC: PAIN 08:01
DX: M51.16 Intervertebral disc disorders with radiculopathy, lumbar region (principal); M48.061 Spinal stenosis, lumbar region without neurogenic claudication; M47.27 Other spondylosis with radiculopathy, lumbosacral region; G89.29 Other chronic pain; J44.1 Chronic obstructive pulmonary disease with (acute) exacerbation; Z87.891 Personal history of nicotine dependence; Z88.0 Allergy status to penicillin; Z79.899 Other long term (current) drug therapy; Z98.890 Other specified postprocedural states; Z79.82 Long term (current) use of aspirin

== ENCOUNTER → 2018-05-22 | Outpatient (CLI) | payer OTHER ==
[~2018-05-22] VITALS: Ht 170.2 cm; Wt 71.4 kg
--- NOTE | ~2018-05-22 | HPC ---
[facility] [address] [place] [address] PAIN MANAGEMENT CONSULTATION Name: SUE PRINCE Room #: REG [facility].#: [id number] Admission: 05/22/18 Attend Phys: Angel Beth DO Discharge: Date of : 33 Report #: [id number] THIS REPORT FOR: //name// CC: Justin Bangura MD DATE OF SERVICE: 05/22/2018 REFERRING PHYSICIAN: Justin Edmondson M.D. CHIEF COMPLAINT: Low back pain, bilateral lower extremity pain and paresthesias, left greater than right. HISTORY OF PRESENT ILLNESS: As you know, the patient is an 82-year-old female who has been treated for lumbar radicular symptoms involving the low back and bilateral lower extremities, left greater than right. The patient returns today reporting pain score of around 7/10. She indicates the epidural injection provided at our last visit gave 90% improvement in overall pain. She continues to suffer from back symptoms secondary to progressively worsening spinal stenosis. She returns today in followup visit requesting to undergo next in the series of epidural injections in hopes of improving pain. She denies new injury or trauma that may have led to symptom recurrence. ALLERGIES: PENICILLIN, CEPHALOSPORINS, MORPHINE, CODEINE, TETANUS, PROCAINE, , MOXIFLOXACIN and LEVOFLOXACIN. CURRENT MEDICATIONS: See extensive list in chart. SOCIAL HISTORY: The patient denies tobacco, alcohol, IV or illicit drug use. She reports herself as a reformed smoker. She quit nearly 23 years ago. She is unaccompanied today. IMAGING DATA: No new imaging available. PQRS: The patient has arthritic changes of the lumbar spine, bilateral knees, bilateral hips. No rheumatoid arthritis. Pain is rated at 7/10 today. She is a fall risk, but has not had a fall in the last 3 months. She is using a roller walker for ambulation. She is not on blood thinners. She reports she is not treated for hypertension. She has not been on chronic opioids. She has a moderate risk of opioid addiction based on our risk assessment tool. Pain impact score/functional assessment tool 48/70, [id number] interference of daily activities secondary to pain. PHYSICAL EXAMINATION: [facility] [address] [place] [address] PAIN MANAGEMENT CONSULTATION Name: SUE PRINCE Room #: [facility]#: [id number] Admission: 05/22/18 Attend Phys: Angel Beth DO Discharge: Date of : 33 Report #: [id number] VITAL SIGNS: Blood pressure 143/79, pulse 73 and respiratory rate 22 and unlabored. The patient is 99% on room air. Height 5 feet 7 inches tall, weight 157.4 pounds and BMI calculated 24.6. GENERAL: Well-developed, well-nourished, well-hydrated 82-year-old female appearing stated age, placing pain score today 7/10. HEENT: Normocephalic and atraumatic. Pupils equal, round and reactive to light. EXTREMITIES: Show no clubbing, no cyanosis and no edema. MUSCULOSKELETAL: Lower extremity strength appears symmetrical but deconditioned bilaterally. Seated straight leg raising positive on the left. Supine straight leg raising positive on the left. Karsten's test negative. Gait extremely antalgic favoring left lower extremity over right. Deep tendon reflexes are symmetrical but diminished. ASSESSMENT: 1. Symptomatic lumbar radiculopathy. 2. Progressively worsening spinal stenosis of the lumbar spine. 3. 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 4. Lumbosacral spondylosis with radiculopathy. 5. Severe foraminal stenosis of lumbar spine. 6. Facet arthropathy of the lumbar spine. 7. Lumbar degeneration. 8. Chronic intractable pain. PLAN: 1. The patient has returned today in followup visit indicating about a 90% improvement in overall pain with the epidural injection provided at last visit. She returns today in followup visit requesting to undergo next in the series of epidural injections in hopes of improving pain. The patient has been advised risks and benefits of procedure, states understood and wished to proceed. 2. The patient will be sent for physical therapy. We will start twice a week for 6-8 weeks. The physical therapy will help strengthen the patient and improve her balance issues. We will start this as quickly as possible. 3. We will see the patient back in followup visit on an as needed basis for possible next in the series of epidural injections. PROCEDURE NOTE DESCRIPTION OF PROCEDURE: L5-S1 paramedian epidural steroid injection under fluoroscopic guidance. This is the first procedure of the second series that the patient is undergoing. After obtaining written consent, the patient was taken back to the fluoroscopy suite, placed in a prone position with pillow under the abdomen to decrease lumbar lordosis. The skin overlying the lumbosacral area was then prepped and [facility] [address] [place] [address] PAIN MANAGEMENT CONSULTATION Name: SUE PRINCE Room #: REG [facility]#: [id number] Admission: 05/22/18 Attend Phys: Angel Beth DO Discharge: Date of : 33 Report #: [id number] draped in aseptic fashion. The L5-S1 vertebral interspace was then identified by AP fluoroscopy. The skin and subcutaneous tissue overlying the target site of injection was anesthetized with 3 mL 1% lidocaine. A 20-gauge 3-1/2 inch Tuohy needle was then advanced under fluoroscopic guidance towards the epidural space using a paramedian approach. The epidural space was identified using loss of resistance to air technique. After negative aspiration for heme or cerebrospinal fluid, a total of 1 mL of Omnipaque was injected. A lumbar epidurogram was confirmed using both AP and lateral fluoroscopy. After negative aspiration for heme or cerebrospinal fluid, 5 mL of a solution containing 2 mL 40 mg per mL, 80 mg total triamcinolone, 3 mL lidocaine 1% was injected in increments. Contrast spread was noted posterior epidural space. The needle was then retracted approximately half way and needle tract flushed with 1 mL of 1% lidocaine. Needle was then removed. There were no apparent sensory or motor deficits in the lower extremity following the procedure. A sterile bandage was placed over the injection site. The heart rate, pulse, oximetry and blood pressure were continuously monitored after the procedure. There were no apparent complications. The patient tolerated the procedure well and was carefully escorted to the recovery room in stable condition. There were no apparent complications. After meeting discharge criteria, the patient was then discharged home. By: [phone] Angel Beth DO /nt
[2018-05-22 11:12] VITALS: BP 143/79
== END | disposition home or self-care (01) ==
LOC: PAIN 06:51
DX: M51.16 Intervertebral disc disorders with radiculopathy, lumbar region (principal); M48.061 Spinal stenosis, lumbar region without neurogenic claudication; M47.27 Other spondylosis with radiculopathy, lumbosacral region; M99.73 Connective tissue and disc stenosis of intervertebral foramina of lumbar region; M12.88 Other specific arthropathies, not elsewhere classified, other specified site; G89.29 Other chronic pain; Z88.8 Allergy status to other drugs, medicaments and biological substances; Z88.0 Allergy status to penicillin; Z79.899 Other long term (current) drug therapy; Z79.82 Long term (current) use of aspirin; Z87.891 Personal history of nicotine dependence

== ENCOUNTER 2018-08-11 16:19 | Inpatient (IN) | payer OTHER ==
[~2018-08-11] VITALS: Ht 170.2 cm; Wt 73.0 kg
[2018-08-11 17:23] VITALS: BP 144/51
[2018-08-11 17:43] LABS: BASOPHILS 0.8 % (0.0-2.0); EOSINOPHILS 0.6 % (0.0-3.0); HEMATOCRIT 36.2 % (37.0-47.0); MCH 31.5 pg (26.0-34.0); MCHC 33.3 g/dL (28.0-37.0); MCV 94.8 fL (80.0-100.0); MONOCYTES 6.7 % (1.0-8.0); PLATELET COUNT 293 thou/uL (150-400); POLYS 83.9 % (36.0-66.0); RBC 3.82 mil/uL (4.20-5.00); RDW 15.3 % (10.5-14.5); WBC 10.8 thou/uL (4.0-11.0)
[2018-08-11 17:51] LABS: CREATININE 1.1 mg/dL (0.6-1.0); POTASSIUM 4.3 mmol/L (3.5-5.1)
[2018-08-11] MEDS ORDERED: DEMADEX20 MG PO (17:53)
[2018-08-11] MEDS ORDERED: DUPIXENT300 MG/2 M SUBQ (17:57)
[2018-08-11 17:58] LABS: ALBUMIN 3.9 g/dL (3.4-5.0); TOTAL BILIRUBIN 0.7 mg/dL (<0.1-1.0); TOTAL PROTEIN 7.2 g/dL (6.4-8.2)
[2018-08-11 18:31] LABS: URINE BILIRUBIN NEGATIVE (Negative); URINE BLOOD NEGATIVE (Negative); URINE CLARITY CLEAR; URINE COLOR YELLOW; URINE GLUCOSE-RANDOM* NEGATIVE (Negative); URINE KETONES NEGATIVE (Negative); URINE LEUKOCYTES-REFLEX TRACE (Negative); URINE NITRITE-REFLEX NEGATIVE (Negative); URINE PROTEIN (DIPSTICK) NEGATIVE (Negative); URINE UROBILINOGEN 0.2 E.U./dl (0.2-1.0)
--- NOTE | 2018-08-11 18:42 | NUR ---
REPORT CALLED TO LUANA RÍOS, PT LEFT THE UNIT @ 1999 IN WHEELCHAIR, WITH HELADIO WILDER, PT HAD ALL OF HER PERSONAL BELONGINGS, IV INTACT AND LOCKED. PT ALERT AND ORIENTED UPDATED ON POC.
[2018-08-11 18:59] VITALS: BP 143/75
[2018-08-11 21:40] VITALS: BP 131/72
--- NOTE | 2018-08-12 02:33 | NUR ---
PT ARRIVED ON UNIT AT 2130 FROM ER. ADMITTED WITH CELLULITIS OF THE RLE. COMES FROM HOME WITH . AMBULATING TO BATHROOM INDEPENDENTLY. IBUPROFEN AVAILABLE FOR PAIN. RESTING COMFORTABLY. NO NEEDS VOICED. CALL LIGHT WITHIN REACH. WILL CONTINUE TO PROVIDE FREQUENT OBSERVATION.
[2018-08-12 04:04] VITALS: BP 134/81
[2018-08-12 04:26] LABS: CALCIUM 7.8 mg/dL (8.5-10.1); CREATININE 1.2 mg/dL (0.6-1.0); HEMATOCRIT 30.9 % (37.0-47.0); HEMOGLOBIN 10.5 gm/dL (12.0-15.0); MCH 32.3 pg (26.0-34.0); MCV 95.1 fL (80.0-100.0); POTASSIUM 3.7 mmol/L (3.5-5.1); RBC 3.25 mil/uL (4.20-5.00)
[2018-08-12 07:55] VITALS: BP 137/71
[2018-08-12 19:09] VITALS: BP 138/76
--- NOTE | 2018-08-12 19:48 | NUR ---
ASSUMED CARE OF PT AT 0700. ASSESSMENT CHARTED. A&O,X4. C/O CHRONIC SCIATICA BACK PAIN, MEDS GIVEN ORDERED. ROOM AIR. 2 L NC/BIPAP AT NIGHT AT HOME. SOA WITH EXERTION. DENIES SOA AT TIME OF ASSESSMENT. NO CHEST PAIN. RIGHT LOWER EXTREMITY CELLULITIS, SKIN TEAR NOTED, DRESSING APPLIED PER PATIENT REQUEST. BILATERAL EDEMA, LASIX GIVEN ORDERED. BRUISING AND OTHER SCARS NOTED. PT UP WITH STANDBY ASSIST. PT IN STABLE CONDITION. VSS. END OF SHIFT.
[2018-08-13] VITALS (11 sets, daily range): BP systolic 91–144; BP diastolic 46–89
--- NOTE | 2018-08-13 07:48 | NUR ---
Assumed care at 1845. Pt resting in bed. Been having trouble sleeping because of back pain. VSS. AOX4. On 2L NC night . +1 swelling on both ankles. Been taking her pills with apple sauce. PRN breathing treatments ordered. Stand by assist with a walker. No identified needs at the moment. Will continue to monitor.
--- NOTE | 2018-08-13 08:52 | 2DMMODE ---
[facility] [place] [address] [address] 2 D/M-MODE ECHOCARDIOGRAM Name: SUE PRINCE Room #: 457-P ADM IN ..#: [id number] ������������� Admission: 08/11/18 ������������� Attend Phys: Juancho Rodriguez MD Discharge: ��� ������������� ��� Date of : 31 Date of Service: 08/13/18 0852 �� Report #: [id number] �������� ��������������������������������������������[id number] THIS REPORT FOR: //name// APPROVED REPORT Study performed: 08/13/2018 08:15:42 EXAM: Limited 2D, Doppler, and color-flow Echocardiogram Patient Location: Echo lab Room #: [facility] Status: routine BSA: 1.84 HR: 88 bpm BP: 134/60 mmHg Other Information Study Quality: Good Indications Limited follow up echo for leg swelling, short of breath, CHF. Hx: Cardiomyopathy, HTN, HLP, COPD. (Complete echo done 05/23/18) Aortic Valve AoV Peak Jf.: 1.53 m/s AO Peak Gr.: 9.37 mmHg Tricuspid Valve RAP Estimate: 5.00 mmHg Left Ventricle The left ventricle is normal size. There is global hypokinesis of the left ventricle. Left ventricular systolic function is mild to moderately decreased. LVEF is 40-45%. This study is not technically sufficient to allow evaluation of the LV diastolic function. Right Ventricle The right ventricle is normal size. Atria Left atrium is dilated. The right atrium size is normal. Aortic Valve Aortic valve is trileaflet, minimally sclerotic Mild aortic regurgitation. There is no aortic valvular stenosis. [facility] [address] [place] [address] 2 D/M-MODE ECHOCARDIOGRAM Name: SUE PRINCE Room #: 457-P ADM IN .R.#: [id number] ������������� Admission: 08/11/18 ������������� Attend Phys: Juancho Rodriguez MD Discharge: ��� ������������� ��� Date of : 33 Date of Service: 08/13/18 0852 �� Report #: [id number] �������� ��������������������������������������������[id number] Mitral Valve Mitral valve leaflets are mildly thickened. Severe mitral regurgitation. Tricuspid Valve The tricuspid valve is normal in structure. There is no tricuspid valve regurgitation noted. Unable to assess PA pressure. Great Vessels IVC is normal in size and collapses >50% with inspiration. Pericardium There is no pericardial effusion. <Conclusion> Abbreviated study Left ventricular systolic function is mild to moderately decreased. There is global hypokinesis of the left ventricle. LVEF 40-45%. Left atrium is dilated. Aortic valve is trileaflet, minimally sclerotic. Mild aortic regurgitation, no stenosis. Mitral valve leaflets are mildly thickened. Severe mitral regurgitation. There is no pericardial effusion. ��������������������������������������������� <ELECTRONICALLY SIGNED> ���������������������������������������� By: Joao Pickering MD, [facility] ��������������������������������������������� 08/13/18 0852 [phone] Joao Pickering MD, FACC /INF
--- NOTE | 2018-08-13 13:05 | NUR ---
RD consult received as pt request. Admitted with RLE cellulitis. Bilateral lower extremity edema. Unsure of wt hx. Pt had fall today with fracture/ dislocation and Ortho consulted. Will address pt RD request need once stabilized. Followup again in 1-2 days
--- NOTE | 2018-08-13 13:14 | NUR ---
WOUND CONSULT: PT. WAS SEEN TODAY BY DR. HEMPHILL AND MYSELF. PT. HAS 2 ULCERATIONS TO THE RIGHT CALF THAT ARE DRY, STABLE, ESCHAR. CELLULITIS IS RESOLVING. RECOMMENDATIONS: SKIN PREP DAILY, LEAVE OPEN TO AIR. PT. AND STAFF NURSE WERE INSTRUCTED ON PLAN OF CARE.
[2018-08-13 13:27] LABS: CALCIUM 8.2 mg/dL (8.5-10.1)
--- NOTE | 2018-08-13 16:46 | NUR ---
ASSUMED CARE 0700. ALERTX4, CHRONIC BACK PAIN MANAGED WITH MEDICATIONS, FALL PRECAUTIONS IN PLACE AND DISCUSSED WITH PATIENT DURRING MORNING REPORT. PT CALLS APPROAPRIATELY AND USES CANE WITH STAND BY ASSIST THIS MORNING. AT APPROXIMATELY 10AM PT SLIPPED OFF BED WHILE TRYING TO ASWER PHONE. THIS NURSE HEARD PT AND REQUESTED ASSIST PT TO BED. DR JOSEPH AT BEDSIDE DURING TRANSFER AND ORDERED XRAY OF LEFT LEG, KNEE, AND HIP. ORTHO WAS NOTIED WAS FAMILY. PATIENT LEFT FOR SURGERY AT 1400 AND CURRENTLY STILL AT SURGERY.
[2018-08-14 04:16] VITALS: BP 106/54
--- NOTE | 2018-08-14 04:47 | NUR ---
Assumed care at 1845. Pt resting in bed. HOB at 30 degrees. Gave her one time fentanyl for pain. Dressing on surgical site CDI. Post op vitals stable. Pt has a allen that has been draining well. IV right AC with NS @80. Call light within reach. Bed in lowest position. Will continue to monitor.
[2018-08-14 05:24] LABS: CALCIUM 6.8 mg/dL (8.5-10.1); CREATININE 1.1 mg/dL (0.6-1.0); POTASSIUM 4.4 mmol/L (3.5-5.1)
[2018-08-14 07:26] VITALS: BP 105/45
[2018-08-14 08:56] VITALS: BP 105/45
[2018-08-14 14:08] VITALS: BP 98/50
--- NOTE | 2018-08-14 16:25 | NUR ---
WOUND FOLLOW UP: PT. WAS SEEN TODAY BY DR. HEMPHILL AND MYSELF. PT. WOUND IS STABLE AT THIS TIME. RECOMMENDATIONS: CONTINUE WITH CURRENT PLAN OF CARE. PT. AND STAFF NURSE WERE INSTRUCTED ON PLAN OF CARE.
--- NOTE | 2018-08-14 19:40 | NUR ---
PATIENT TRANSFERRED FROM [facility], REPORT FROM YOMAIRA/RN. PATIENT ALERT AND ORIENTED X 4. UP WITH ASSIST X 2 WITH WALKER. PATIENT FELL AND HAS FX OF LEFT FEMUR REPAIRED YESTERDAY, POST DAY 1, DRESSING C/D/I PATIENT HAS RIGHT HAND IV WITH NS AT 80CC/HR. PATIENT C/O PAIN X 2, FENTANYL IV AND DILAUDID IV GIVEN, PATIENT WORKED WITH PT/OT TODAY. PATIENT UP TO THE WHEELCHAIR PER QUE/PT, AND ASSISTED BACK TO BED BY PHYSICAL THERAPY/QUE. FIRST PAIN SHOT GIVEN PRIOR TO PT, AND PATIENT STAATED NO RELIEF, DILAUDID IV GIVEN SECOND DOSE. PATIENT HAS BEEN RESTING WELL AFTER SECOND DOSE. AND SEMI TRUCK DRIVER ASSISTED PATIENT WITH DINNER. PATIENT WEARS O2 AT NIGHT, AND WEARS PULSE OX, BIPAP AT HOME. WILL CONTINUE TO MONITOR.
[2018-08-14 20:53] VITALS: BP 100/54
[2018-08-15] VITALS (8 sets, daily range): BP systolic 86–121; BP diastolic 35–58
--- NOTE | 2018-08-15 01:52 | NUR ---
Assumed pt care at 1900.Pt A/OX3,able to make needs known. VSS. CMS intact to LLE,edema noted on lashay ankles 1-2+.C/o pain to left hip especially with movement medicated with Ibuprofen per request with some relief reported. Gil patent draining dark yellow urine po fluids encouraged.IVF infusing via right hand PIV without problems.SCDs applied to BLE.Fall precautions in place and pt agreeable to call for help. Resting quietly eyes closed,O2 on @ 2L/NC,will continue to monitor pt.
[2018-08-15 06:09] LABS: MCH 32.6 pg (26.0-34.0); MCHC 33.8 g/dL (28.0-37.0); MCV 96.4 fL (80.0-100.0); RBC 1.86 mil/uL (4.20-5.00); RDW 14.8 % (10.5-14.5); WBC 9.3 thou/uL (4.0-11.0)
[2018-08-15 06:12] LABS: HEMATOCRIT 17.9 % (37.0-47.0)
[2018-08-15 06:28] LABS: POTASSIUM 3.8 mmol/L (3.5-5.1)
[2018-08-15 06:30] LABS: CALCIUM 5.9 mg/dL (8.5-10.1)
[2018-08-15 07:34] LABS: HEMATOCRIT 13.8 % (37.0-47.0)
[2018-08-15 07:40] LABS: HEMOGLOBIN 4.4 gm/dL (12.0-15.0)
[2018-08-15 07:41] LABS: ALBUMIN 1.4 g/dL (3.4-5.0); ANION GAP 12 mmol/L (7-16); BUN 22 mg/dL (7-18); CHLORIDE 116 mmol/L (98-107); CO2 15 mmol/L (21-32); CREATININE 1.3 mg/dL (0.6-1.0); GLUCOSE 66 mg/dL (74-106); SGOT 26 U/L (15-37); SGPT 11 U/L (30-65); SODIUM 143 mmol/L (136-145); TOTAL BILIRUBIN 0.6 mg/dL (<0.1-1.0); TOTAL PROTEIN 3.1 g/dL (6.4-8.2)
[2018-08-15 07:43] LABS: CALCIUM < 5.0 mg/dL (8.5-10.1)
[2018-08-15 07:51] LABS: POTASSIUM 2.4 mmol/L (3.5-5.1)
[2018-08-15 09:16] LABS: WBC 9.4 thou/uL (4.0-11.0)
[2018-08-15 09:18] LABS: MCH 32.4 pg (26.0-34.0); MCHC 33.6 g/dL (28.0-37.0); MCV 96.3 fL (80.0-100.0); RBC 1.94 mil/uL (4.20-5.00); RDW 15.2 % (10.5-14.5)
[2018-08-15 09:21] LABS: HEMATOCRIT 18.7 % (37.0-47.0); HEMOGLOBIN 6.3 gm/dL (12.0-15.0)
[2018-08-15 09:38] LABS: ALBUMIN 2.5 g/dL (3.4-5.0); CALCIUM 6.6 mg/dL (8.5-10.1); MAGNESIUM 2.1 mg/dL (1.8-2.4); TOTAL BILIRUBIN 0.6 mg/dL (<0.1-1.0); TOTAL PROTEIN 5.2 g/dL (6.4-8.2)
[2018-08-15 09:46] LABS: POTASSIUM 3.9 mmol/L (3.5-5.1)
--- NOTE | 2018-08-15 12:13 | NUR ---
ASSUMED CARE OF PATIENT AT 0715, PATIENT ALERT AND ORIENTED X 4. PATIENT HAD LABS THIS AM, CRITICAL LAB 1ST ONE HEMG. 6.0 HCT 18.9 CALCIUM 5.9, 2ND LAB DRAW 0740 LIZ/LAB HEMG 4.4 HCT 13.8, CALCIUM 4.4, K+ 2.4, NOTIFIED DR LEACH RECEIVED ORDER TO REDRAW BMP WITH MAGNESIUM, CMP, H&H, CBC W/O DIFF. 3RD LAB DRAW 0912, RECEIVED CALL FROM SHANNEN H&H 6.3, HCT 18.7, RECEIVED ANOTHER CALL AT 0950 NA 134, POTASSIUM 3.9, DR LEACH ON THE UNIT AND NOTIFIED, PATIENT WILL TRANSFER TO [facility] TO RECEIVE BLODD AND PUT ON THE MONITOR. AVINA CATHETER IN PLACE, CARLOS A COLORED URINE. PATIENT HAD RIGHT HAND IV, LEAKING NOR GOOD. THIS RN NOTIFIED IV TEAM, KIRSTEN JEFFERSON PLACED RIGHT UPPER ARM DOUBLE LUMEN 20G, IV FLUIDS RESTARTED. REPORT GIVEN TO JACINDA/RN [address] [place]. PATIENT WILL TRANSFER AFTER LUNCH. WILL CONTINUE TO MONITOR. PAIENT ALSO C/O CRAMP RIGHT BUTTOCK, NOTIFIED DR LEACH.
--- NOTE | 2018-08-15 12:18 | NUR ---
INITIAL ASSESSMENT: SW reviewed chart and spoke with nursing. Pt was admitted from home due to cellulitis. Pt was [facility] from [facility] yesterday. Pt had fall on 4W and sustained left femur fx. Pt will be transferring to 3W to room 353 later today. Recommendation made for pt to go to post-acute care at time of discharge. BETTIE met with pt at bedside. Introduced role of SW. Pt is alert/orientated. Pt reports she lives at home with her spouse, who is in good health. Prior to admission, pt was using a cane or walker. Pt has home O2 through [employer]. Pt has used [facility] in the past and has been to [facility]. SW provided pt with list of in-network SNFs for review. BETTIE explained that [facility] likely does not take her insurance, but her face sheet will be sent to [facility] to check benefits. Pt verbalized understanding and will review list of SNFs with her family. BETTIE is following to assist as needed with discharge planning.
--- NOTE | 2018-08-15 12:41 | NUR ---
DISCHARGE PLANNING. POST ACUTE CARE RECOMMENDED AT DISCHARGE ONCE PATIENT IS MEDICALLY READY. PATIENT TO TRANSFERRING TO [facility] FOR BLOOD TRANSFUSSION. FACESHEET FAXED TO [facility] ADMISSIONS LIAISON. PATIENT REQUESTING [facility] TO REVIEW PROVIDER COVERAGE TO SEE IF [facility] CAN ACCEPT. PATIENT HAS BEEN TO [facility] IN THE PAST AND WOULD LIKE TO RETURN FOR POST ACUTE CARE NEEDS. [facility] NOTIFIED AND WILL CONTACT CM WITH UPDATE. FOLLOWINT TO ASSIST WITH DISCHARGE PLACEMENT NEEDS.
--- NOTE | 2018-08-15 15:11 | NUR ---
WOUND FOLLOW UP: PT. WAS SEEN TODAY BY DR. HEMPHILL AND MYSELF. PT. WOUND IS STABLE ON HER RIGHT CALF. PT. SURGICAL DRESSING TO HER LEFT UPPER THIGH WAS CHANGED TODAY. INCSION IS WELL APPROXIMATED AND PT. IS IN GOOD SPIRITS. RECOMMENDATIONS: CONTINUE WITH CURRENT PLAN OF CARE. PT. AND STAFF NURSE WERE INSTRUCTED ON PLAN OF CARE.
--- NOTE | 2018-08-15 16:00 | NUR ---
PT REPORTS FEELING WEAK AND SOA..HGB 6.3..INFUSING 1 UNIT PRBC...FALL PREC IN PLACE
[2018-08-16 03:45] VITALS: BP 126/50
--- NOTE | 2018-08-16 05:22 | NUR ---
PT MAKING SLOW PROGRESS TOWARDS GOALS. NO BM OVERNIGHT BUT PT DOES REPORT PASSING SOME GAS. DAY RN REPORTS GIVEN PT MIRALAX DULCOLAX. DENIES ANY NAUSEA. IBUPROFEN ONCE FOR BACK AND LEFT LEG PAIN WITH MILD RELIEF. SEE CHARTING.
[2018-08-16 05:51] LABS: HEMATOCRIT 20.4 % (37.0-47.0)
[2018-08-16 05:52] LABS: HEMOGLOBIN 7.2 gm/dL (12.0-15.0)
[2018-08-16 07:22] VITALS: BP 117/45
[2018-08-16 07:59] VITALS: BP 117/45
[2018-08-16 07:59] LABS: CREATININE 1.5 mg/dL (0.6-1.0); POTASSIUM 4.1 mmol/L (3.5-5.1)
[2018-08-16 11:31] VITALS: BP 118/47
--- NOTE | 2018-08-16 15:09 | NUR ---
BETTIE reviewed chart and spoke with nursing and attending physician. Pt is progressing towards goals for discharge. Discharge to [facility] is anticipated for tomorrow. [facility] checked pt's insurance. Authorization required, then pt will have $0 copay for days 1-20 then $100 per day from days 21-100. BETTIE met with pt at bedside to provide update. Pt is agreeable with going to [facility] and aware of copay starting on day 21. BETTIE updated [facility] liaision. wedding planner faxed clinical info for review. BETTIE notified by [facility] liaison that insurance gave authorization for planned admission tomorrow. BETTIE is following to assist as needed with discharge planning.
[2018-08-16 15:19] VITALS: BP 150/58
--- NOTE | 2018-08-16 16:04 | NUR ---
PATIENT RESTING IN RECLINER AT THIS TIME. STATES SHE PREFERS TO SIT ON THE CHAIR HER BACK HURTS WHEN SHE IS ON THE BED FOR TOO LONG. RESPIRATIONS ARE NON LABORED AT THIS TIME. SHE DID REQUEST IBUPROFEN FOR PAIN EARLIER AND IT WAS QUITE EFFECTIVE I CONTROLLING HER PAIN. WILL CONT WITH PLAN OF CARE AT THIS TIME.
[2018-08-16 20:05] VITALS: BP 105/45
[2018-08-17] VITALS (8 sets, daily range): BP systolic 104–142; BP diastolic 41–95
[2018-08-17 05:28] LABS: WBC 8.2 thou/uL (4.0-11.0)
[2018-08-17 05:29] LABS: MCH 30.7 pg (26.0-34.0); MCHC 33.5 g/dL (28.0-37.0); MCV 91.7 fL (80.0-100.0); RBC 2.09 mil/uL (4.20-5.00); RDW 17.9 % (10.5-14.5)
[2018-08-17 05:31] LABS: HEMATOCRIT 19.2 % (37.0-47.0); HEMOGLOBIN 6.4 gm/dL (12.0-15.0)
[2018-08-17 05:44] LABS: CALCIUM 6.2 mg/dL (8.5-10.1); CREATININE 1.3 mg/dL (0.6-1.0); MAGNESIUM 2.4 mg/dL (1.8-2.4)
--- NOTE | 2018-08-17 06:27 | NUR ---
PT MAKING SLOW PROGRESS TOWARDS GOALS. PT HAD LARGE SOFT AND DARK BROWN STOOL AT THE BEGINNING OF THE NIGHT. SLIGHT BLACKISH TONE NOTED. SAME WAS SENT TO LAB FOR HEMMOCULT WHICH WAS "NEGATIVE." IBUPROFEN ONCE FOR BACK AND LEFT LEG PAIN. MILD RELIEF OBTAINED. THIS AM PT WAS RESTLESS, HAD NOT BEEN ABLE TO REACH A COMFORTABLE POSITION DESPITE REPOSITIONING. ONE DOSE OF FENTANYL GIVEN WITH PT QUICKLY MOVING TOWARDS A RELAXED STATE. "THANK YOU, GOOD NIGHT."
[2018-08-17 06:41] LABS: % SATURATION 8 % (20-39); IRON 14 ug/dL (50-170); TIBC 179 ug/dL (250-450)
--- NOTE | 2018-08-17 07:55 | HC ---
[facility] [place] [place] [address] CONSULTATION Name: SUE PRINCE Room #: 353-P [facility] IN ..#: [id number] Admission: 08/11/18 ������������������ Attend Phys: Juancho Rodriguez MD Discharge: ������������������ Date of : 33 Report #: [id number] THIS REPORT FOR: //name// CC: KANDACE physician/PCP Juancho Rodriguez DATE OF SERVICE: 08/13/2018 CHIEF COMPLAINT: Traumatic wounds and cellulitis of the right lower extremity. HISTORY OF PRESENT ILLNESS: This is an 83-year-old female patient, who has a history of hypertension and COPD, presented to the Emergency Department with worsening pain, swelling and redness to right lower extremity that began a few days prior to admission when she injured her leg on a car door. She was started on clindamycin, but the redness and swelling and drainage worsened. She has also sustained a fall with a left femur fracture and is scheduled for surgery. PAST MEDICAL HISTORY: Positive for COPD, renal insufficiency, previous knee replacement, previous lumbar laminectomy. SOCIAL HISTORY: Positive for occasional alcohol use. She is a previous smoker. FAMILY HISTORY: Noncontributory. ALLERGIES: INCLUDE PENICILLIN, PROCAINE, TETANUS, CEFDINIR, CODEINE, MORPHINE, CEPHALOSPORINS, MOXIFLOXACIN AND LEVOFLOXACIN. MEDICATIONS: Include torsemide, Dupixent, Levoxyl, Singulair, Spiriva, Cymbalta, Symbicort, Mucinex, vitamin D, Protonix, Citracal, coenzyme Q, magnesium, docusate sodium, omega 3 fatty acids, atorvastatin, Avapro, Procardia, AccuNeb, Advil, Neurontin, prednisone. REVIEW OF SYSTEMS: CONSTITUTIONAL: The patient denies fever, chills or weight loss. NEUROLOGICAL: The patient denies focal weakness. ENT: The patient denies earache, nasal drainage or sore throat. CARDIOVASCULAR: The patient denies chest pain, palpitations or diaphoresis. PULMONARY: The patient denies cough or shortness of breath. GASTROINTESTINAL: The patient denies nausea, vomiting, diarrhea or abdominal pain. ORTHOPEDIC: The patient does complain of significant pain in the left thigh area. Mild pain in the right lower extremity. Other systems in a 14-point review of systems are negative. PHYSICAL EXAMINATION: VITAL SIGNS: At this time include temperature 36.7, pulse 89, respiratory rate [address] [address] CONSULTATION Name: SUE PRINCE Room #: 353-P [facility] IN M.R.#: [id number] Admission: 08/11/18 ������������������ Attend Phys: Juancho Rodriguez MD Discharge: ������������������ Date of : 33 Report #: [id number] of 20, blood pressure 134/60. GENERAL: This is a chronically ill-appearing female patient who appears to be in moderate discomfort. HEENT: Head normocephalic. Nose and throat are clear. NECK: Supple. LUNGS: Clear. HEART: Regular rhythm. ABDOMEN: Soft. Bowel sounds present. EXTREMITIES: The lower extremities demonstrate obvious deformity of the left thigh with internal rotation of the leg. Distal pulses are intact. Examination of the right leg demonstrates 2 linear lacerations to the right lateral lower leg. There is some surrounding erythema associated with this. There is a small amount of necrosis along the laceration wound edges. Overall, there is reasonably good skin edge opposition. NEUROLOGIC: The patient is alert and oriented and appropriate. LABORATORY DATA: Includes sodium 144, potassium 4.0, chloride 107, CO2 of 27, BUN 23, creatinine 1.0, glucose is 111. CLINICAL IMPRESSION: 1. Traumatic wounds to the right lower extremity. 2. Cellulitis, right lower extremity, failing outpatient therapy. 3. Left femur fracture. 4. History of chronic obstructive pulmonary disease. RECOMMENDATIONS: At this point in time, recommend topical skin prep to the traumatic wounds, otherwise left open to air. Continue intravenous antibiotic therapy regarding the cellulitis. She is going to go for surgical intervention for the left femur fracture. She will need aggressive nutritional support. We will continue to follow her in the hospital. I appreciate being asked to see her in consultation. ��������������������������������������������� <ELECTRONICALLY SIGNED> ���������������������������������������� By: Lauri Arguelles MD ��������������������������������������������� 08/17/18 0755 0753 0044 Lauri Arguelles MD /nt
--- NOTE | 2018-08-17 14:15 | NUR ---
SW reviewed chart and spoke with nursing and attending physician. Pt's Hgb was low this morning. Pt had blood transfusion. Pt not ready for discharge to [facility] today. SW notified [facility] liaison, who states that the insurance authorization will be good through the weekend, and they can accept over the weekend if pt is medically stable. BETTIE met with pt at bedside to provide update. Pt is aware and agreeable with discharge plan. Chart copy ordered and will need to be updated. Final discharge orders/summary will need to be faxed to [facility] when available. high school coordinator to be contacted to facilitate discharge. BETTIE is following to assist as needed with discharge planning. [facility]: [phone]
[2018-08-17 15:00] LABS: HEMATOCRIT 24.5 % (37.0-47.0); HEMOGLOBIN 8.3 gm/dL (12.0-15.0)
--- NOTE | 2018-08-17 15:14 | NUR ---
Assumed care of patient at 0700. Patient is A&Ox4. Helped patient reposition to chair and in so doing, noticed her left thigh was darkly bruised. Patient reports not noticing such bruising yesterday. Patient's HGB fell to 6.4 from 7.2 yesterday. Given recent femur fracture Dr. Rosas was contacted. Dr. Rosas assessed and ordered CT of LLE to check for possible bleeding. Results of CT are still pending. Patient was scheduled to receive 1 unit of PRBCs. After infusion patient's HGB was up to 8.3 at 1453. Ibuprofen was DC'd as a precaution. Patient reported pain level of 9 but wanted to avoid narcotics. After talking with Dr. Rosas, gave patient a dose of fentanyl. Patient remains comfortable resting in chair. Patient is slowly progressing toward POC goals. Will continue to monitor and assess.
--- NOTE | 2018-08-17 15:21 | NUR ---
WOUND FOLLOW UP: PT. WAS SEEN TODAY BY DR. HEMPHILL AND MYSELF. PT. WOUNDS ARE STABLE BUT, PT. LEFT UPPER THIGH IS VERY SWOLLEN. ULTRASOUND HAS BEEN ORDERED FOR FURHTER EVALUATION. RECOMMENDATIONS: CONTINUE WITH CURRENT PLAN OF CARE. PT. AND STAFF NURSE WERE INSTRUCTED ON PLAN OF CARE.
--- NOTE | 2018-08-17 18:04 | NUR ---
Paged Dr. Rosas regarding CT leg and relayed results to him. He requests a call to ortho to [facility]. Spoke with Dr. Baird via phone and read CT results to him. No further orders at this time and physician states he will round on patient tomorrow morning to assess and address any further concerns. Updated patient. Continue to monitor.
[2018-08-18] VITALS (7 sets, daily range): BP systolic 129–168; BP diastolic 64–99
[2018-08-18 04:28] LABS: HEMATOCRIT 23.1 % (37.0-47.0); HEMOGLOBIN 7.6 gm/dL (12.0-15.0); MCV 90.8 fL (80.0-100.0); RBC 2.54 mil/uL (4.20-5.00); RDW 17.6 % (10.5-14.5); WBC 7.4 thou/uL (4.0-11.0)
[2018-08-18 04:42] LABS: CALCIUM 6.6 mg/dL (8.5-10.1); CREATININE 1.2 mg/dL (0.6-1.0); MAGNESIUM 2.5 mg/dL (1.8-2.4); POTASSIUM 4.3 mmol/L (3.5-5.1)
--- NOTE | 2018-08-18 06:01 | NUR ---
SLEPT MOST OF SHIFT. TURNED FOR COMFORT NEEDED. WORKING ON GOALS AND PLAN OF CARE FOR NOC. PROGRESSING SLOWLY TOWARDS DISCHARGE GOALS. KEEP LEFT LEG ELEVATED MUCH POSSIBLE. REASSURE NEEDED. CONTINUE TO ASSES.
--- NOTE | 2018-08-18 16:30 | NUR ---
Assumed care of patient at 0700. Patient is A&Ox4. She has had increasing bilateral leg pain throughout the day. She describes pain as electrical shooting pain going down both legs and has rated it 6-10/10 on varying reassessments today. Says that it stems from previous spinal stenosis. Denies that pain is related to left leg fracture/surgery. Spoke with Dr. Rosas and explained the situation. He ordered that her gabapentin be changed from BID to TID. Provided PRN Dilauded per patient's pain rating and request around 1515. Patient is currently sleeping in bed. Dr. Rosas also started pt on Toursemide. Ordered to keep allen in place. Pt seems to be growing increasingly discouraged. has been at bedside today which has helped her spirits. Patient and family increasingly concerned about what the course of tx looks like and what the next steps are. Continue to encourage and inform as best possible. Patient is slowly progressing toward POC goals. Will continue to monitor and assess.
[2018-08-19] VITALS (8 sets, daily range): BP systolic 134–147; BP diastolic 48–88
[2018-08-19 04:04] LABS: HEMATOCRIT 25.7 % (37.0-47.0); HEMOGLOBIN 8.5 gm/dL (12.0-15.0); MCH 30.2 pg (26.0-34.0); MCHC 32.8 g/dL (28.0-37.0); RBC 2.8 mil/uL (4.20-5.00); RDW 17.3 % (10.5-14.5); WBC 7.9 thou/uL (4.0-11.0)
[2018-08-19 04:23] LABS: CALCIUM 6.7 mg/dL (8.5-10.1); CREATININE 1.1 mg/dL (0.6-1.0); MAGNESIUM 2.3 mg/dL (1.8-2.4); POTASSIUM 4.6 mmol/L (3.5-5.1)
--- NOTE | 2018-08-19 06:39 | NUR ---
SLEPT MOST OF SHIFT PAIN IV DILAUDID. STATES JUST FEELS RESTLESS AND HARD TO GET COMFORTABLE. ASSISTED TO REPOSITION PRN. TOLERATING FLUIDS. NO BOWEL MOVEMENT THIS SHIFT. WORKING ON GOALS AND PLAN OF CARE FOR NOC. PROGRESSING SLOWLY TOWARDS DISCHARGE GOALS. CONTINUE TO ASSES CLOSELY.
--- NOTE | 2018-08-19 18:33 | NUR ---
Assumed care of patient at 0700. Patient is A&Ox4. Some tachycardia today. Her HGB has increased to 8.5 from 7.6 yesterday. Lungs still sound clear with some coarseness in the LRL. Patient has been caughing and expelling white sputum. Some upper airway congestion can be heard. Patient has been in good spirits and has felt better today. Pain has been under control for majority of the day. Patient has been up to chair multiple times. Patient is able to transfer a little more easily today than in previous days. Patient finally beginning to feel like she is "making progress." Patient still has not had BM since 08/16. Patient is making progress toward POC goals. Will continue to monitor and assess.
[2018-08-20] VITALS (7 sets, daily range): BP systolic 125–149; BP diastolic 62–77
[2018-08-20 05:23] LABS: HEMATOCRIT 24.4 % (37.0-47.0); MCH 29.9 pg (26.0-34.0); MCHC 32.8 g/dL (28.0-37.0); MCV 91.2 fL (80.0-100.0); RBC 2.68 mil/uL (4.20-5.00); RDW 17.3 % (10.5-14.5); WBC 8.3 thou/uL (4.0-11.0)
[2018-08-20 05:27] LABS: CALCIUM 6.9 mg/dL (8.5-10.1); CREATININE 1.1 mg/dL (0.6-1.0); POTASSIUM 4.5 mmol/L (3.5-5.1)
[2018-08-20 10:29] LABS: HEMATOCRIT 27.5 % (37.0-47.0); HEMOGLOBIN 8.9 gm/dL (12.0-15.0); MCHC 32.5 g/dL (28.0-37.0); MCV 92.4 fL (80.0-100.0); RBC 2.98 mil/uL (4.20-5.00); RDW 17.1 % (10.5-14.5); WBC 10.2 thou/uL (4.0-11.0)
--- NOTE | 2018-08-20 13:08 | NUR ---
Followup: tolerating meals. Likely discharge soon. Remains low nutrition risk
--- NOTE | 2018-08-20 14:52 | NUR ---
BETTIE reviewed chart and spoke with nursing and attending physician. Pt is not yet medically stable per cardiology. BETTIE contacted [facility] liaison, who states they do not have authorization anymore and will not have a bed available until , at the earliest. BETTIE met with pt at bedside to discuss discharge plan. Per pt, she will be started on lasix. SW provided updated regarding bed availability at [facility]. SW reviewed list of additional in-network SNFs. Pt requests referral to be sent to [facility] for review. senior buyer planner to fax referral. SNF will need insurance authorization. SW is following to assist as needed with discharge planning.
--- NOTE | 2018-08-20 15:00 | NUR ---
dp sent snf referral to [facility], let admissions know and told them patient[facility] choice is [facility], but [facility] does not have a bed available now, however the patient is not medically stable for discharge today.
--- NOTE | 2018-08-20 15:05 | NUR ---
WOUND FOLLOW UP: PT. WAS SEEN TODAY BY DR. HEMPHILL AND MYSELF. PT. RIGHT LEG IS CLINICALLY BETTER. PT. LLE IS SWOLLEN AND WEEPING AT THIS TIME. DISTAL INCISON IS HAVING A LARGE AMOUNT OF DRAIANGE NOTED WELL. RECOMMENDATIONS: CONTINUE WITH CURRNET PLAN OF CARE. PT. AND STAFF NURSE WERE INSTRUCTED ON PLAN OF CARE.
--- NOTE | 2018-08-20 18:25 | NUR ---
care of pt assumed this am @ ~0700. pt noted to be awake, alert and engaging in conversation this am. pt w/ much flatus, so need for bsc numerous times this am. pt w/ need of x2 staff to assist from bed to bsc and back. pt verbalized her concern re: "i don't think i am suppose to walk for 1 month". pt informed of her ability and need for her to ambulate using toe touch wt bearing to that lle. pt co pain 3-7/10 to her lle, medicated w/ po pain pills w/ relief. pt co increased edema, tightness and increased reddness to ble today, dr. florence consulted and an us doppler of ble done. pt believes the lasix ordered by dr. florence helped in decreasing the ble edema and tightness she felt earlier. pt w/ cxr today, pt and family informed of results, pt encouraged to use her is 10x every hour while awake to help improve her next cxr. pt also was a canidate for SS today, but she refuses to return to . cm/sw making a plan for the pt to possible dc tomorrow, family (daughter and ) aware.
--- NOTE | 2018-08-21 03:47 | NUR ---
ASSUMED PT CARE AROUND 1900. A&OX4. C/O SOME GENERALIZED PAIN AND PAIN IN LLE. PRN PAIN MEDICATION GIVEN WITH SOME RELIEF. PT SLEPT MOST OF THE NIGHT. RESP EVEN AND UNLABORED. LLE ELEVATED ON PILLOW TO HELP WITH SWELLING. PT SAT UP IN CHAIR AT BEGINNING OF SHIFT. TOLERATED WELL. AVINA TO DD WITH GOOD URINE OUTPUT. FALL PRECUATIONS IN PLACE. PROGRESSING SLOWLY TOWARD POC GOALS.
[2018-08-21 05:00] VITALS: BP 130/60
[2018-08-21 07:21] VITALS: BP 151/66
--- NOTE | 2018-08-21 07:44 | HC ---
[facility] [address] [address] CONSULTATION Name: SUE PRINCE Room #: 353-P [facility] [place] ..#: [id number] Admission: 08/11/18 ������������������ Attend Phys: Juancho Rodriguez MD Discharge: ������������������ Date of : 33 Report #: [id number] THIS REPORT FOR: //name// CC: KANDACE physician/PCP Juancho Rodriguez DATE OF SERVICE: 08/20/2018 INDICATION: Dyspnea. HISTORY OF PRESENT ILLNESS: This is an 83-year-old female with a history of cardiomyopathy, COPD, GERD, hypertension who was initially admitted for cellulitis. While undergoing treatment with antibiotics and wound care, she fell out of bed and fractured her left femur. She did undergo surgery. In the postop period, she was found to be anemic, undergoing transfusions. Over the course of the next several days, she has developed more dyspnea and increased swelling of her lower extremities. She offers no complaints of angina, lightheadedness, palpitations or orthopnea. PAST MEDICAL HISTORY: Includes mild CAD, cardiomyopathy with EF in the 45% range. COPD, on chronic oxygen therapy; GERD; hypertension; hyperlipidemia; moderately severe mitral regurgitation; sleep apnea; Raynaud's; asthma; spinal stenosis. ALLERGIES: Please see chart for full listing. MEDICATIONS AT HOME: Include Coreg 3.125 mg twice a day, aspirin, Lipitor 10 mg, albuterol inhaler, Avapro 300 mg daily, Procardia-XL 30 mg daily, Symbicort, and Demadex 20 mg daily. SOCIAL HISTORY: Negative for tobacco use. FAMILY HISTORY: Negative for premature CAD. REVIEW OF SYSTEMS: A full 10-point review of systems performed. Only the pertinent positives and negatives are described in the HPI. PHYSICAL EXAMINATION: VITAL SIGNS: Blood pressure is 149/60, heart rate is 94 beats per minute. GENERAL APPEARANCE: This is an elderly appearing female in no acute distress. HEENT: Normocephalic, atraumatic. Oral mucosa moist. NECK: Supple. LUNGS: Slightly diminished breath sounds at bases. CARDIAC: Regular rate and rhythm, S1, S2 positive. ABDOMEN: Soft, nontender. EXTREMITIES: No cyanosis, 1+ bilateral lower extremity edema. [facility] [address] [place] [address] CONSULTATION Name: SUE PRINCE Room #: 353-P [facility] [place] [facility].#: [id number] Admission: 08/11/18 ������������������ Attend Phys: Juancho Rodriugez MD Discharge: ������������������ Date of : 33 Report #: [id number] LABORATORY VALUES: White count is 10.2, hemoglobin is 8.9, platelet count is 348. Sodium is 140, creatinine is 1.1. ASSESSMENT AND PLAN: 1. Cardiomyopathy/congestive heart failure, acute on chronic mixed. The fluid overload is potentiated by transfusions and IV hydration. We will discontinue torsemide and start IV Lasix at this time. Strict I's and O's. Continue with low salt diet. 2. Chronic obstructive pulmonary disease, stable with oxygen therapy. 3. Hypertension, blood pressure is at the upper limits of normal, continue on the present medical regimen. 4. Statin therapy, continue with Lipitor. 5. Cellulitis, continue with antibiotics. ��������������������������������������������� <ELECTRONICALLY SIGNED> ���������������������������������������� By: Mark Llamas MD ��������������������������������������������� 08/21/18 0744 1450 0714 Mark Llamas MD /nt
--- NOTE | 2018-08-21 11:13 | NUR ---
Applications Intern sent updates to [facility], and contacted admissions. Patient will likely discharge tomorrow.
--- NOTE | 2018-08-21 12:40 | NUR ---
WOUND FOLLOW UP: PT. WAS SEEN TODAY BY DR. HEMPHILL AND MYSELF. PT. SWELLING TO LLE IS DOWN TODAY IN COMPARRISON TO YESTERDAY. RECOMMENDATIONS: CONTINUE WITH CURRENT PLAN OF CARE. PT. AND STAFF NURSE WERE INSTRUCTED ON PLAN OF CARE.
--- NOTE | 2018-08-21 15:37 | NUR ---
BETTIE reviewed chart and spoke with nursing and attending physician. Pt is progresssing towards goals for discharge. Pt on IV pain meds and IV lasix. Discharge to post-acute is anticipated for tomorrow pending insurance authorization. BETTIE updated [facility] liaison and mortgage loan coordinator, who confirm they are able to accept pt. BETTIE is following to assist as needed with discharge planning.
[2018-08-21 15:48] VITALS: BP 130/89
--- NOTE | 2018-08-21 18:35 | NUR ---
ASsumed care of Pt at 0700. Pt aox3 complaining of pain to right leg, later on right leg. redness and edema to RLE. up w/ 2 assist to chair for most of the day. pt reports pain not well controlled with current med regimen - physician notified - meds adjusted. calls out appropriately. vitals stable. slow progress lauri chambers.
[2018-08-21 20:00] VITALS: BP 123/83
[2018-08-22 03:45] VITALS: BP 151/88
--- NOTE | 2018-08-22 05:59 | NUR ---
PAIN IS CONTROLLED FOR SHORT PERIODS OF TIME. SHE HAS BEEN HAVING MUSCLE SPASMS TONIGHT. RECIEVED ORDER FOR NORFLEX X1. SHE NEED ASSISTANCE WITH TURNING AND POSTIONING IN THE BED TO [facility] ALLIGNMENT OF HIP.CAREPLAN REVIEWED. PROGRESSING SLOWLY TOWARD GOALS
[2018-08-22 07:23] VITALS: BP 135/68
[2018-08-22 08:10] VITALS: BP 135/68
--- NOTE | 2018-08-22 12:24 | O ---
[facility] [place] [address] [place] [address] OPERATIVE REPORT Name: SUE PRINCE Room #: 353-P [facility] IN ..#: [id number] Admission: 08/11/18 ������������������ Attend Phys: Juancho Rodriguez MD Discharge: ������������������ Date of : 33 Report #: [id number] THIS REPORT FOR: //name// CC: KANDACE physician/PCP Juancho Rodriguez DATE OF SERVICE: 08/11/2018 PREOPERATIVE DIAGNOSIS: Left midshaft femur fracture. POSTOPERATIVE DIAGNOSIS: Left midshaft femur fracture. PROCEDURE: Treatment of left midshaft femur fracture with an IM nail. SURGEON: Jf Garza MD SALES SPECIAL AGENT: Clau Friend PA-C. ANESTHESIA: LMA. IMPLANTS: [employer]itus [employer]hew size 10 x 40 [place]-Nail with 85/80 proximal locking screws and 47.5 and 57.5 distal locking screws. ESTIMATED BLOOD LOSS: 50 mL. COMPLICATIONS: None. SPECIMENS: None. CONDITION UPON LEAVING THE OPERATING ROOM: Stable. INDICATIONS FOR PROCEDURE: The patient is an 83-year-old female who was admitted to the hospital for cellulitis of her right lower extremity. Unfortunately, she fell this morning and sustained a left midshaft femur fracture with a butterfly fragment and extension to just above her total knee arthroplasty. After discussion with she and her family about treatment options, we decided for treatment with an antegrade IM nail. DESCRIPTION OF PROCEDURE: Risks, benefits, alternatives, complications were discussed in detail with the patient and the patient's family including but not limited to risk of anesthesia, risk of damage to nerves, arteries and blood vessels, risk for infection and bleeding, risk for continued leg pain, malunion, nonunion and need for reoperation. Informed consent was obtained from the patient. The left thigh was appropriately marked in the preoperative holding area. She was previously on IV vancomycin and this was continued for preoperative antibiotics. She was brought to the operating room and A [address] [address] OPERATIVE REPORT Name: SUE PRINCE Room #: 353-P [facility].#: [id number] Admission: 08/11/18 ������������������ Attend Phys: Juancho Rodriguez MD Discharge: ������������������ Date of : 33 Report #: [id number] anesthesia was induced without complication. She was transferred to the Olmitz table and secured. The left lower extremity was placed in traction. Right lower extremity was scissored. Fluoroscopic imaging was brought in to verify adequate fracture reduction, as was the case. Left hip and thigh were then prepped and draped in normal sterile fashion. Timeout was performed properly identifying the patient and procedure as well as the instrumentation and implants. All in the operating room were in agreement. A 2-inch incision proximal to the tip of the greater trochanter was made with a 10 blade through the skin and fascia. A threaded tip guidewire was placed on the tip of the greater trochanter and taken to the level of the lesser trochanter under AP and lateral imaging. This was deemed to be an adequate starting portal and then the entry portal reamer was used to ream the entry portal. Ball tip guidewire was then placed down across the fracture site and seated at the distal femur and the length of the nail was measured and found to be a size 40. This was then reamed up to a size 11.5, at which point there was excellent chatter. A size 10 x 40 [id number] was then placed down across the fracture site and seated. The 2 proximal locking screws were then placed under fluoroscopic imaging to verify that the screws were in the adequate position on the femoral head. This was an 85/80 screw. Two distal locking screws were then placed using the perfect prairie band technique, the proximal of which was 47.5 mm and the distal was 57.5. After this, final fluoroscopic images were taken to verify adequate fracture reduction and placement of hardware, as was the case. The wounds were thoroughly irrigated with normal saline and closed with 2-0 Vicryl and skin staple. Soft dressing of Adaptic, 4 x 4, ABD, Medipore tape were applied. The patient tolerated this procedure well and went to the recovery room under care of Anesthesia postoperatively. ��������������������������������������������� <ELECTRONICALLY SIGNED> ���������������������������������������� By: Jf Garza MD ��������������������������������������������� 08/22/18 1224 1630 15 Jf Garza MD /nt
--- NOTE | 2018-08-22 13:09 | NUR ---
WOUND FOLLOW PT: PT. WAS SEEN TODAY BY DR. HEMPHILL AND MYSELF. PT. WOUNDS ARE CLINICALLY IMPROVED AT THIS TIME. RECOMMENDATIONS: CONTINUE WITH CURRENT PLAN OF CARE. PT. AND STAFF NURSE WERE INSTRUCTED ON PLAN OF CARE.
--- NOTE | 2018-08-22 15:17 | NUR ---
SW reviewed chart and spoke with nursing and attending physician. Pt is progressing towards goals for discharge. Pt's IV pain meds will be discontinued today. Anticipate discharge to [facility] tomorrow. BETTIE updated [facility] admissions gate attendant and liaison, who confirm they can accept tomorrow. Authorization obtained and is valid through tomorrow. BETTIE is following to assist as needed with discharge planning.
[2018-08-22 15:38] VITALS: BP 130/73
--- NOTE | 2018-08-22 17:01 | NUR ---
Assumed care of pt at 0700. Patient has been having cramping in upper LE periodically throughout day. Patient is trying to transition to PO pain meds in preparation of DC. Last IV pain med was given around 1030. Patient reports decrease in pain with PO meds. Patient has been focusing on proper alignment of LLE today to help reduce cramping. Patient remains swollen in LLE, Lasix has been increased to BID to help with this. Gil remains in place to facilitate accurate I&O. Patient is making slow progress toward POC/DC goals. Will contoinue to monitor and assess.
[2018-08-22 20:05] VITALS: BP 140/76
[2018-08-23 04:45] VITALS: BP 121/69; BP 151/98
[2018-08-23 05:03] LABS: HEMATOCRIT 24.3 % (37.0-47.0); MCHC 32.8 g/dL (28.0-37.0); MCV 91.5 fL (80.0-100.0); RBC 2.66 mil/uL (4.20-5.00); RDW 16.7 % (10.5-14.5); WBC 7.4 thou/uL (4.0-11.0)
[2018-08-23 05:19] LABS: CALCIUM 7.3 mg/dL (8.5-10.1); CREATININE 1.2 mg/dL (0.6-1.0); POTASSIUM 4.1 mmol/L (3.5-5.1)
--- NOTE | 2018-08-23 06:50 | NUR ---
PATIENT IS ALERT AND ORIENTED. PATIENTS PAIN IS IMPROVED. PATIENT HAS A AVINA. PATIENT IS 2L NC (NOT BASE LINE). MIDLINE LEG POSITION WAS ENCOURAGED. PATIENTS LBM WAS THE 22ND PRUNE JUICE AND SUPPOSITORY WAS GIVEN PER REQUEST. PAITENT IS NSR ON TELE. PATIENT IS TOE TOUCH ON LT LEG. DRESSING INTACT. BARRIER CREAM APPLIED TO RT LEG WOUNDS FROM CELLUITISIS. EDEMA TO LOWER LEGS HAVE IMPROVED. PATIENT IS RESTING COMFORTABLY IN BED WCM. PATIENT IS PROGRESSING TO GOALS.
[2018-08-23 07:42] VITALS: BP 131/71
[2018-08-23 08:45] VITALS: BP 131/71
--- NOTE | 2018-08-23 11:24 | NUR ---
WOUND FOLLOW UP: PT. WAS SEEN TODAY BY DR. MORALES AND MYSELF. ALL WOUNDS ARE CLINICALLY BETTER AT THIS TIME AND DISCHARGE PLANNING WAS DISCUSSED. RECOMMENDATIONS: CONTINUE WITH CURRENT PLAN OF CARE. PT. AND STAFF NURSE WERE INSTRUCTED ON PLAN OF CARE.
[2018-08-23] MEDS ORDERED: PERCOCET 10-321 EACH PO ×2 (14:41→14:52)
[2018-08-23] MEDS ORDERED: IRON325 PO (14:41)
[2018-08-23] MEDS ORDERED: CARVEDILOL3.125 MG PO (14:41)
[2018-08-23] MEDS ORDERED: MIRALAX17 GM PO (14:41)
--- NOTE | 2018-08-23 14:56 | NUR ---
DISCHARGE ORDERS COMPLETED. PATIENT DISCHARGING TO [facility]. CHART COPIED PER EVALUATION SPECIALIST. DISCHARGE ORDERS AND SUMMARY FAXED TO [facility]. VERIFIED ORDERS RECEIVED. WHEELCHAIR TRANSPORT PER [facility], 1500 HOURS. FAMILY NOTIFIED. UNIT RN NOTIFIED AND CONTACT NUMBER PROVIDED FOR REPORT. UNIT CM/SW AWARE.
--- NOTE | 2018-08-23 15:03 | NUR ---
Assumed care of patient at 0700. Vitals have been stable. Alert and oriented x4. Complaints of pain to left hip / left leg. Pain controlled with PRN Percocet. Bilateral lower extremity edema swelling seems improved this morning compared to yesterday. Up with 1-2 assist, GB and walker. Toe touch weight bearing to left leg. Fall precautions in place. Able to stand and pivot to chair or BSC. Moderate BM this morning. Family at bedside this morning; able to speak with physicians regarding plan of care. Questions were answered. Discharge orders received. Patient to DC to [facility]. Report called to [facility]. IV and telemetry discontinued. Belongings gathered. Gil discontinued per Dr. Rodriguez. To transport via wheelchair van at 1500.
--- NOTE | 2018-08-23 16:32 | NUR ---
DISCHARGE NOTE: SW reviewed chart and spoke with nursing and attending physician. Pt is medically stable for discharge to [facility] today. SW notified [facility] liaison, who states they will provide transportation at 1500 this afternoon. digital sales planner faxed d/c orders/summary. Pt aware and agreeable with discharge plan. Pt's spouse present at time of discharge. Nursing to call report. Chart copy updated. No additional SW needs identified at this time, but is available to assist should needs arise.
--- NOTE | 2018-08-24 10:28 | NUR ---
SW received call fro pt's , stating he and pt's family were upset with the care at [facility]. Per pt's spouse, the nursing care was not good and family was very unsatisfied. Pt's spouse requested assistance with moving her to another facility. SW explained that the staff at [facility] can assist with moving her, but SW offered to notify [facility] admissions and clinical staff to go visit with pt and family regarding their concerns. Pt's spouse agreeable. SW notified [facility] liaison. [facility] staff met with pt and family. Pt and family agreeable to stay. Pt will be moved to the rehab unit today. Apparently, she was in the long-term care unit upon admission. BETTIE followed up with pt's spouse, who states they are satisfied for now and will give [facility] another chance. No further SW needs identified at this time, but is available to assist should needs arise.
== END 2018-08-23 15:15 | DRG 981 ==
LOC: ER 16:19 → SICU 18:28 → 4W 18:28 → EROBS 18:28 → 4W 21:20 → SICU 08-14 11:22 → ENTRNSPT 08-15 13:01 → EDTRNSPTSTS 08-15 13:09 → 3W 08-15 13:35
PROVIDERS: Anesthesiology; Emergency Medicine; Internal Medicine; Internal Medicine Cardiovascular Disease; Nurse Practitioner Acute Care; ADMIT Hospitalist
PROC: 0QS906Z Reposition Left Femoral Shaft with Intramedullary Internal Fixation Device, Open Approach (ICD-10-PCS; principal; 2018-08-11)
PROC: 30233N1 Transfusion of Nonautologous Red Blood Cells into Peripheral Vein, Percutaneous Approach (ICD-10-PCS; 2018-08-15)
DX: L03.115 Cellulitis of right lower limb (principal); I50.43 Acute on chronic combined systolic (congestive) and diastolic (congestive) heart failure; M80.00XA Age-related osteoporosis with current pathological fracture, unspecified site, initial encounter for fracture; I42.9 Cardiomyopathy, unspecified; G93.40 Encephalopathy, unspecified; D62 Acute posthemorrhagic anemia; Z96.653 Presence of artificial knee joint, bilateral; J44.9 Chronic obstructive pulmonary disease, unspecified; I25.10 Atherosclerotic heart disease of native coronary artery without angina pectoris; K21.9 Gastro-esophageal reflux disease without esophagitis; E78.5 Hyperlipidemia, unspecified; J45.909 Unspecified asthma, uncomplicated; E03.9 Hypothyroidism, unspecified; G62.9 Polyneuropathy, unspecified; G89.29 Other chronic pain; I11.0 Hypertensive heart disease with heart failure; M54.9 Dorsalgia, unspecified; M62.84 Sarcopenia; R14.0 Abdominal distension (gaseous); I34.0 Nonrheumatic mitral (valve) insufficiency; S80.811A Abrasion, right lower leg, initial encounter; Z79.52 Long term (current) use of systemic steroids; Z90.710 Acquired absence of both cervix and uterus; Z90.12 Acquired absence of left breast and nipple; Z87.891 Personal history of nicotine dependence; Z88.6 Allergy status to analgesic agent; Z88.1 Allergy status to other antibiotic agents; Z88.0 Allergy status to penicillin; Z88.7 Allergy status to serum and vaccine; Z88.8 Allergy status to other drugs, medicaments and biological substances; Z79.82 Long term (current) use of aspirin; Z79.899 Other long term (current) drug therapy; Z47.89 Encounter for other orthopedic aftercare; Z79.1 Long term (current) use of non-steroidal anti-inflammatories (NSAID); W18.39XA Other fall on same level, initial encounter; Y93.89 Activity, other specified; Y92.89 Other specified places as the place of occurrence of the external cause; Y99.8 Other external cause status
CPT/HCPCS: 10040; 10779; 10879; 15002; 50010; 50101; 50386; 51412; 51538; 52304; 55445; 56524; 57092; 62110; 62900; 70005

== ENCOUNTER → 2019-06-25 | Outpatient (CLI) | payer OTHER ==
[~2019-06-25] MED LIST changes: +CARVEDILOL3.125 MG PO; +DEMADEX20 MG PO; +DUPIXENT300 MG/2 M SUBQ; +IRON325 PO; +MIRALAX17 GM PO; +PERCOCET 10-321 EACH PO
== END ==
LOC: SJCVCIMAG 10:12
DX: I42.9 Cardiomyopathy, unspecified (principal); I34.0 Nonrheumatic mitral (valve) insufficiency; I11.0 Hypertensive heart disease with heart failure; I50.9 Heart failure, unspecified; I25.10 Atherosclerotic heart disease of native coronary artery without angina pectoris; J44.9 Chronic obstructive pulmonary disease, unspecified; K21.9 Gastro-esophageal reflux disease without esophagitis; E03.9 Hypothyroidism, unspecified; Z87.891 Personal history of nicotine dependence; Z72.89 Other problems related to lifestyle; Z79.899 Other long term (current) drug therapy; Z88.0 Allergy status to penicillin; Z88.5 Allergy status to narcotic agent; Z88.1 Allergy status to other antibiotic agents; Z88.2 Allergy status to sulfonamides

== ENCOUNTER → 2019-12-25 | Outpatient (CLI) | payer OTHER | LOC: SJCVC 11:37 | PROVIDERS: ATTEND Internal Medicine Cardiovascular Disease | DX: R94.31 Abnormal electrocardiogram [ECG] [EKG] (principal); I10 Essential (primary) hypertension; I25.10 Atherosclerotic heart disease of native coronary artery without angina pectoris; I34.0 Nonrheumatic mitral (valve) insufficiency; E78.00 Pure hypercholesterolemia, unspecified; Z79.899 Other long term (current) drug therapy; Z87.891 Personal history of nicotine dependence ==

== ENCOUNTER → 2020-03-06 | Outpatient (CLI) | payer OTHER | LOC: LAB 08:00 | PROVIDERS: ATTEND Internal Medicine | DX: Z20.828 Contact with and (suspected) exposure to other viral communicable diseases (principal) ==

== ENCOUNTER → 2020-06-25 | Outpatient (CLI) | payer OTHER | LOC: SJCVCIMAG 08:29 | PROVIDERS: ATTEND Internal Medicine Cardiovascular Disease | DX: I08.3 Combined rheumatic disorders of mitral, aortic and tricuspid valves (principal); R94.31 Abnormal electrocardiogram [ECG] [EKG]; I42.9 Cardiomyopathy, unspecified; I25.10 Atherosclerotic heart disease of native coronary artery without angina pectoris; J44.9 Chronic obstructive pulmonary disease, unspecified; I11.0 Hypertensive heart disease with heart failure; I50.9 Heart failure, unspecified; K21.9 Gastro-esophageal reflux disease without esophagitis; E03.9 Hypothyroidism, unspecified; E78.5 Hyperlipidemia, unspecified; G47.33 Obstructive sleep apnea (adult) (pediatric); Z96.653 Presence of artificial knee joint, bilateral; Z98.890 Other specified postprocedural states; Z90.710 Acquired absence of both cervix and uterus; Z88.0 Allergy status to penicillin; Z88.8 Allergy status to other drugs, medicaments and biological substances; Z79.82 Long term (current) use of aspirin; Z79.899 Other long term (current) drug therapy; Z87.891 Personal history of nicotine dependence ==

== ENCOUNTER 2020-09-06 16:00 | Inpatient (IN) | payer OTHER ==
[~2020-09-06] VITALS: Ht 152.4 cm; Wt 73.6 kg
--- NOTE | ~2020-09-06 | HC ---
[facility] [place] [address] CONSULTATION Name: SUE PRINCE Room #: 214-P ADM IN M.R.#: [id number] Admission: 09/06/20 Attend Phys: Sada Lauren MD Discharge: Date of : 31 Report #: [id number] THIS REPORT FOR: cc: Justin Edmondson MD, Bernard O. MD Khosla, Parveen K. MD ~ DOC #: [id number] Jason Bhatti MD DATE OF SERVICE: 09/07/2020 HISTORY OF PRESENT ILLNESS: This is an 85-year-old female patient who was admitted with an episode of ataxia and maybe some speech difficulty. The symptoms lasted less than an hour. They came spontaneously and resolved spontaneously. She had an episode of amaurosis fugax about a year ago and she said she was taking a baby aspirin every other day. She takes it every other day because she bruises very easily even with that dosages. She feels mostly back to her baseline now. REVIEW OF SYSTEMS: A 14-point review of system was carried out. She had an episode of amaurosis fugax. She had this episode of ataxia. She had a prior history of respiratory problems. She used to smoke about 25 years ago, but does not smoke now. Records indicate she has some renal insufficiency. She denies being diabetic. Presently, she is not complaining of any new eye, ENT, cardiac, respiratory, GI, , musculoskeletal, constitutional, dermatological, hematological, psychiatric or throat symptom associated with present symptomatology. PAST MEDICAL HISTORY: Positive for amaurosis fugax. FAMILY HISTORY: Negative for any early age stroke. SOCIAL HISTORY: She used to smoke 25 years ago and she drinks 1-2 alcoholic drinks every night. PHYSICAL EXAMINATION: The patient's examination indicate she is alert. She can tell me what month it is, but she did not tell me exactly what date it is. She knew what hospital she was in. Her speech looks somewhat slurred, but I do not know what her baseline is. Her memory and fund of knowledge according to her is at her baseline. Cranial nerve examination II-XII was carried out. I am not sure about visual silverio and I am not sure about facial asymmetry in this patient. Her strength, sensation, reflexes and tone looks symmetrical. She did have some trouble with position sense, but I think that was because of understanding the instructions. She said she can appreciates touch and pinprick. Reflexes are diminished in generalized fashion. There is no meningeal sign. I could not look at the patient's fundus. Her pulses are nicely palpable. She has no edema, cyanosis or jaundice. She has no thyroid [address] [address] CONSULTATION Name: SUE PRINCE Room #: 214-P [facility] IN M.R.#: [id number] Admission: 09/06/20 Attend Phys: Sada Lauren MD Discharge: Date of : 31 Report #: [id number] mass or carotid bruit. Cardiac examinations appear unremarkable. No respiratory difficulty was noticed except her baseline COPD. VITAL SIGNS: Her blood pressure was 119/50, pulse is 70, temperature is 97.8. LABORATORY DATA: Indicates white count of 14.6. Her GFR is only 33. Blood sugar is high at 170. She had a CT angiogram looks like in emergency rooms that was unremarkable. IMPRESSION: 1. Symptoms suggestive of transient ischemic attack. 2. She does not drink alcohol, but not enough to cause her symptoms usually. 3. Looks like she had a CT angiography in the emergency room and her GFR is low. I will defer to admitting doctors about hydrations and monitoring that because they used pretty significant amount of dye when they do the CT angiogram. RECOMMENDATIONS: 1. Main testing at this stage is doing an MRI, which is scheduled for today. 2. EKG has shown a question of some myocardial infarctions. I will suggest to the admitting doctor if any further workup is needed. She will need a 30-day event monitor as an outpatient. We will reevaluate this patient after the MRI is done. Thank you very much for this referral and if you have any questions, please feel free to contact me. Jason Bhatti MD PK/AMI By: 0820 0929 Jason Bhatti MD /nt
[2020-09-06 16:05] VITALS: BP 132/71
[2020-09-06 16:37] LABS: ABSOLUTE NEUTROPHILS 13.2 thou/uL (1.4-8.2); BASOPHILS 0.7 % (0.0-2.0); EOSINOPHILS 0.7 % (0.0-3.0); HEMATOCRIT 37.5 % (37.0-47.0); HEMOGLOBIN 12.1 gm/dL (12.0-15.0); LYMPHOCYTES 5.5 % (24.0-44.0); MCH 30.9 pg (26.0-34.0); MCHC 32.2 g/dL (28.0-37.0); MONOCYTES 2.9 % (1.0-8.0); PLATELET COUNT 277 thou/uL (150-400); POLYS 90.2 % (36.0-66.0); WBC 14.6 thou/uL (4.0-11.0)
[2020-09-06 16:38] LABS: ANION GAP 7 mmol/L (7-16); BUN 28 mg/dL (7-18); CALCIUM 8.8 mg/dL (8.5-10.1); CHLORIDE 103 mmol/L (98-107); CO2 29 mmol/L (21-32); CREATININE 1.5 mg/dL (0.6-1.0); GLUCOSE 170 mg/dL (74-106); POTASSIUM 4.6 mmol/L (3.5-5.1); SODIUM 139 mmol/L (136-145)
[2020-09-06 16:48] LABS: ALBUMIN 3.5 g/dL (3.4-5.0); SGOT 15 U/L (15-37); SGPT 18 U/L (14-59); TOTAL BILIRUBIN 0.7 mg/dL (0.2-1.0); TROPONIN-I <0.06 ng/mL (<0.06)
[2020-09-06 16:53] LABS: APTT 24.3 Seconds (24.5-32.8); INR 1.03; PROTIME 11.2 Seconds (10.5-12.1)
[2020-09-06 17:21] LABS: URINE BILIRUBIN NEGATIVE (Negative); URINE BLOOD NEGATIVE (Negative); URINE CLARITY CLEAR; URINE COLOR YELLOW; URINE GLUCOSE-RANDOM* NEGATIVE (Negative); URINE KETONES NEGATIVE (Negative); URINE LEUKOCYTES-REFLEX TRACE (Negative); URINE NITRITE-REFLEX NEGATIVE (Negative); URINE PROTEIN (DIPSTICK) NEGATIVE (Negative); URINE UROBILINOGEN 0.2 E.U./dl (0.2-1.0)
[2020-09-06 18:11] VITALS: BP 111/50
[2020-09-06 19:10] VITALS: BP 147/65
[2020-09-07] VITALS (10 sets, daily range): BP systolic 111–136; BP diastolic 44–61
--- NOTE | 2020-09-07 07:46 | EKG ---
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: CHERY : 1935 Requested By: Sada Lauren Order Number: [id number] MD: Roscoe Barber Measurements Intervals [place] Rate: 70 P: 53 GA: 181 QRS: -50 QRSD: 115 T: 57 QT: 433 QTc: 468 Interpretive Statements Sinus rhythm Nonspecific IVCD with LAD Inferior infarct, old Compared to ECG 01/30/2018 04:34:14 Intraventricular conduction delay now present Myocardial infarct finding now present Sinus tachycardia no longer present Ventricular premature complex(es) no longer present Left ventricular hypertrophy no longer present Q waves no longer present Electronically Signed On 09-07-2020 7:46:05 CDT by Roscoe Barber [email or web address] <ELECTRONICALLY SIGNED> By: Roscoe Barber MD, [facility] 09/07/20 0746 1610 1610 Roscoe Barber MD, [facility] /EPI
--- NOTE | 2020-09-07 12:35 | 2DMMODE ---
[facility] [place] [address] 2 D/M-MODE ECHOCARDIOGRAM Name: SUE PRINCE Room #: 214-P ADM IN M.R.#: [id number] Admission: 09/06/20 Attend Phys: Sada Lauren MD Discharge: Date of : 31 Report #: [id number] THIS REPORT FOR: cc: Justin Edmondson MD, Bernard O. MD Lundgren, Craig H. MD [facility] ~ APPROVED REPORT Study performed: 09/07/2020 11:49:24 EXAM: Comprehensive 2D, Doppler, and color-flow Echocardiogram Patient Location: Bedside Room #: 214 Status: routine BSA: 1.82 HR: 80 bpm BP: 119/50 mmHg Rhythm: NSR Other Information Study Quality: Good Indications TIA. Hx: COPD, HTN, HLP. 2D Dimensions RVDd: 34.21 mm IVSd: 10.13 (7-11mm) LVOT Diam: 20.43 (18-24mm) LVDd: 56.81 mm PWd: 10.12 (7-11mm) Ascending Ao: 32.39 (22-36mm) LVDs: 38.69 (25-40mm) Left Atrium: 41.66 (27-40mm) Aortic Root: 35.63 mm Volumes Left Atrial Volume (Systole) Single Plane 4CH: 64.56 mL Single Plane 2CH: 80.47 mL LA ESV Index: 43.00 mL/m2 Aortic Valve AoV Peak Jf.: 1.35 m/s AO Peak Gr.: 7.24 mmHg LVOT Max P.29 mmHg LVOT Max V: 0.91 m/s [facility] [address] [place] [address] 2 D/M-MODE ECHOCARDIOGRAM Name: SUE PRINCE Room #: 214-P [facility] IN [facility]#: [id number] Admission: 09/06/20 Attend Phys: Sada Lauren MD Discharge: Date of : 31 Report #: [id number] Vmax: 2.21 cm2 Mitral Valve E/A Ratio: 0.7 MV Decel. Time: 200.65 ms MV E Max Jf.: 0.95 m/s MV A Jf.: 1.27 m/s MV PHT: 58.19 ms IVRT: 86.51 ms Pulmonary Valve PV Peak Jf.: 0.95 m/s PV Peak Gr.: 3.59 mmHg Tricuspid Valve TR Peak Jf.: 2.10 m/s RAP Estimate: 5.00 mmHg TR Peak Gr.: 18.00 mmHg PA Pressure: 23.00 mmHg Left Ventricle The left ventricle is normal size. There is normal LV segmental wall motion. There is normal left ventricular wall thickness. The left ventricular systolic function is normal. The left ventricular ejection fraction is within the normal range. LVEF is 50-55%. Mild diastolic dysfunction Right Ventricle The right ventricle is normal size. The right ventricular systolic function is normal. Atria Left atrium is moderately dilated. The right atrium size is normal. Aortic Valve The aortic valve is mildly calcified, trileaflet. Mild aortic regurgitation. There is no aortic valvular stenosis. Mitral Valve The mitral valve is normal in structure. Moderate mitral regurgitation. Tricuspid Valve The tricuspid valve is normal in structure. Trace tricuspid regurgitation. Estimated PAP is 20-25mmHg. Pulmonic Valve [facility] [place] [address] 2 D/M-MODE ECHOCARDIOGRAM Name: SUE PRINCE Room #: 214-P [facility] IN M.R.#: [id number] Admission: 09/06/20 Attend Phys: Sada Lauren MD Discharge: Date of : 31 Report #: [id number] The pulmonary valve is normal in structure. Trace pulmonic regurgitation. Great Vessels The aortic root is normal in size. The ascending aorta is normal in size. IVC is normal in size and collapses >50% with inspiration. Pericardium There is no pericardial effusion. <Conclusion> The left ventricular systolic function is normal. There is normal LV segmental wall motion. LVEF is 50-55%. Mild diastolic dysfunction Left atrium is moderately dilated. The aortic valve is mildly calcified, trileaflet. Mild aortic regurgitation, no stenosis. The mitral valve is normal in structure. Moderate mitral regurgitation. Trace tricuspid regurgitation. Estimated pulmonary artery pressure of 20-25mmHg. There is no pericardial effusion. <ELECTRONICALLY SIGNED> By: Joao Pickering MD, FACC 09/07/20 1234 1234 1234 Joao Pickering MD, FACC /INF
--- NOTE | 2020-09-07 15:01 | NUR ---
met with patient who admits with dizziness. Patient resides at home with spouse. She has walker and wc. Her wc is in her room. Patient reports all needs on one level in her home. She reports she uses nocturnal oxygen at home. She is currently rec oxygen. Requested rn assess need for oxygen during day if can take off or not. Patient will need sat/excercise if need for oxygen during the day. Patient reports feeling better today. Anticipate no dc needs. Cont to follow for dc planning.
--- NOTE | 2020-09-07 17:07 | NUR ---
PT CARE ASSUMED AT 0700. ASSESSMENTS CHARTED. MEDICATIONS CHARTED. RAC IV. LAC IV. SINUS RHYTHM. SBA-WALKER. TOILET. MRI COMPLETE. ECHO.
[2020-09-08 03:02] VITALS: BP 149/59
--- NOTE | 2020-09-08 03:38 | NUR ---
ASSESSMENTS CHARTED, MEDS CHARTED GIVEN. SINUS RHYTHM WITH BBB ON TELEMETRY. ON MANINTENANCE FLUIDS DURING SHIFT. C/O HEADACHE. GAVE TYLENOL THEN PATIENT ABLE TO SLEEP. FALL PRECAUTIONS IN PLACE DURING SHIFT.
[2020-09-08 04:00] LABS: HEMATOCRIT 33.5 % (37.0-47.0); HEMOGLOBIN 11.2 gm/dL (12.0-15.0); MCH 31.8 pg (26.0-34.0); MCHC 33.5 g/dL (28.0-37.0); RBC 3.53 mil/uL (4.20-5.00); RDW 13.8 % (10.5-14.5); WBC 8.9 thou/uL (4.0-11.0)
[2020-09-08 04:36] LABS: CREATININE 1.2 mg/dL (0.6-1.0); POTASSIUM 3.7 mmol/L (3.5-5.1)
[2020-09-08] MEDS ORDERED: DOXYCYCLINE HYC50 MG PO (08:17)
[2020-09-08] MEDS ORDERED: FLONASE 0.05%50 MCG NASAL (08:18)
[2020-09-08] MEDS ORDERED: MECLIZINE HCL25 M1 PO (08:21)
[2020-09-08 08:32] VITALS: BP 149/59
[2020-09-08 08:41] VITALS: BP 149/59
== END 2020-09-08 09:14 | disposition home or self-care (01) | DRG 682 ==
LOC: ER 16:00 → 2N 17:55 → EROBS 17:55 → 2N 19:00
PROVIDERS: Emergency Medicine; ADMIT Internal Medicine; ATTEND Internal Medicine
DX: N17.0 Acute kidney failure with tubular necrosis (principal); J18.9 Pneumonia, unspecified organism; J96.01 Acute respiratory failure with hypoxia; R65.11 Systemic inflammatory response syndrome (SIRS) of non-infectious origin with acute organ dysfunction; J96.10 Chronic respiratory failure, unspecified whether with hypoxia or hypercapnia; R27.0 Ataxia, unspecified; E78.5 Hyperlipidemia, unspecified; J44.9 Chronic obstructive pulmonary disease, unspecified; I11.0 Hypertensive heart disease with heart failure; J32.9 Chronic sinusitis, unspecified; K21.9 Gastro-esophageal reflux disease without esophagitis; I50.9 Heart failure, unspecified; D72.829 Elevated white blood cell count, unspecified; Z96.653 Presence of artificial knee joint, bilateral; Z79.899 Other long term (current) drug therapy; Z90.710 Acquired absence of both cervix and uterus; Z88.1 Allergy status to other antibiotic agents; Z88.0 Allergy status to penicillin; Z90.12 Acquired absence of left breast and nipple; Z88.7 Allergy status to serum and vaccine; Z88.8 Allergy status to other drugs, medicaments and biological substances; Z88.5 Allergy status to narcotic agent; Z87.891 Personal history of nicotine dependence; Z72.89 Other problems related to lifestyle
CPT/HCPCS: 10081

== ENCOUNTER → 2020-09-24 | Outpatient (CLI) | payer OTHER ==
[~2020-09-24] MED LIST changes: +DOXYCYCLINE HYC50 MG PO; +MECLIZINE HCL25 M1 PO
== END ==
LOC: RAD 12:38
PROVIDERS: ATTEND Internal Medicine
DX: J43.9 Emphysema, unspecified (principal); R91.8 Other nonspecific abnormal finding of lung field; I51.7 Cardiomegaly; J18.9 Pneumonia, unspecified organism

== ENCOUNTER → 2020-12-23 | Outpatient (CLI) | payer OTHER | LOC: SJCVC 10:50 | PROVIDERS: ATTEND Internal Medicine Cardiovascular Disease | DX: R94.31 Abnormal electrocardiogram [ECG] [EKG] (principal); I45.10 Unspecified right bundle-branch block; I42.9 Cardiomyopathy, unspecified; I34.0 Nonrheumatic mitral (valve) insufficiency; I25.10 Atherosclerotic heart disease of native coronary artery without angina pectoris; J44.9 Chronic obstructive pulmonary disease, unspecified; I10 Essential (primary) hypertension; K21.9 Gastro-esophageal reflux disease without esophagitis; E78.00 Pure hypercholesterolemia, unspecified; E78.5 Hyperlipidemia, unspecified; E03.9 Hypothyroidism, unspecified; Z88.0 Allergy status to penicillin; Z88.8 Allergy status to other drugs, medicaments and biological substances; G47.33 Obstructive sleep apnea (adult) (pediatric); Z79.82 Long term (current) use of aspirin; Z79.899 Other long term (current) drug therapy; Z87.891 Personal history of nicotine dependence ==

== ENCOUNTER → 2021-02-16 | Outpatient (CLI) | payer OTHER | LOC: HYPER 08:25 | PROVIDERS: ATTEND Emergency Medicine | DX: L97.822 Non-pressure chronic ulcer of other part of left lower leg with fat layer exposed (principal); S81.801A Unspecified open wound, right lower leg, initial encounter; L03.116 Cellulitis of left lower limb; R60.0 Localized edema; J44.9 Chronic obstructive pulmonary disease, unspecified; I13.0 Hypertensive heart and chronic kidney disease with heart failure and stage 1 through stage 4 chronic kidney disease, or unspecified chronic kidney disease; N18.30 Chronic kidney disease, stage 3 unspecified; I50.40 Unspecified combined systolic (congestive) and diastolic (congestive) heart failure; E78.5 Hyperlipidemia, unspecified; K21.9 Gastro-esophageal reflux disease without esophagitis; M81.0 Age-related osteoporosis without current pathological fracture; Z79.82 Long term (current) use of aspirin; Z87.891 Personal history of nicotine dependence; Z90.710 Acquired absence of both cervix and uterus; X58.XXXA Exposure to other specified factors, initial encounter; Y93.89 Activity, other specified; Y92.89 Other specified places as the place of occurrence of the external cause; Y99.8 Other external cause status ==

== ENCOUNTER → 2021-02-22 | Outpatient (CLI) | payer OTHER | LOC: SJCVCIMAG 08:04 | PROVIDERS: ATTEND Internal Medicine Cardiovascular Disease | DX: I70.202 Unspecified atherosclerosis of native arteries of extremities, left leg (principal); L97.509 Non-pressure chronic ulcer of other part of unspecified foot with unspecified severity; M79.606 Pain in leg, unspecified ==

== ENCOUNTER → 2021-02-24 | Outpatient (CLI) | payer OTHER | LOC: HYPER 02-23 13:54 | PROVIDERS: ATTEND Emergency Medicine | DX: L97.821 Non-pressure chronic ulcer of other part of left lower leg limited to breakdown of skin (principal); L03.116 Cellulitis of left lower limb; R60.0 Localized edema; J44.9 Chronic obstructive pulmonary disease, unspecified; I13.0 Hypertensive heart and chronic kidney disease with heart failure and stage 1 through stage 4 chronic kidney disease, or unspecified chronic kidney disease; I50.40 Unspecified combined systolic (congestive) and diastolic (congestive) heart failure; N18.30 Chronic kidney disease, stage 3 unspecified; M51.36 Other intervertebral disc degeneration, lumbar region; E78.5 Hyperlipidemia, unspecified; K21.9 Gastro-esophageal reflux disease without esophagitis; M81.0 Age-related osteoporosis without current pathological fracture; F41.1 Generalized anxiety disorder; Z79.82 Long term (current) use of aspirin; Z87.891 Personal history of nicotine dependence; Z79.899 Other long term (current) drug therapy ==

== ENCOUNTER → 2021-03-08 | Outpatient (CLI) | payer OTHER | LOC: MRI 10:03 | PROVIDERS: ATTEND Nuclear Medicine Nuclear Cardiology | DX: S22.070A Wedge compression fracture of T9-T10 vertebra, initial encounter for closed fracture (principal); I77.810 Thoracic aortic ectasia; M51.26 Other intervertebral disc displacement, lumbar region; X58.XXXA Exposure to other specified factors, initial encounter; Y92.89 Other specified places as the place of occurrence of the external cause; Y93.89 Activity, other specified; Y99.8 Other external cause status ==

== ENCOUNTER → 2021-03-15 | Outpatient (CLI) | payer OTHER ==
[~2021-03-15] VITALS: Ht 162.6 cm; Wt 73.6 kg
[~2021-03-15] MED LIST changes: +BREO ELLIPTA 11 EACH INH; +ZITHROMAX250 MG PO
[2021-03-15 15:25] VITALS: BP 145/74
[2021-03-15 15:53] LABS: HEMATOCRIT 36.6 % (37.0-47.0); HEMOGLOBIN 12.1 gm/dL (12.0-15.0); MCH 31.2 pg (26.0-34.0); MCHC 33.2 g/dL (28.0-37.0); MCV 94.3 fL (80.0-100.0); RBC 3.89 mil/uL (4.20-5.00); RDW 13.9 % (10.5-14.5); WBC 13.8 thou/uL (4.0-11.0)
[2021-03-15 16:02] LABS: INR 1.02; PROTIME 11.1 Seconds (10.5-12.1)
--- NOTE | 2021-03-16 08:00 | EKG ---
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: FSCHWALBE : 1935 Requested By: Jesús Osorio Order Number: [id number] MD: Roscoe Barber Measurements Intervals [place] Rate: 110 P: -32 MT: 145 QRS: -54 QRSD: 98 T: 19 QT: 336 QTc: 455 Interpretive Statements Sinus tachycardia Inferior infarct, old Borderline ST elevation, anterior leads Compared to ECG 09/06/2020 16:10:19 ST (T wave) deviation now present Sinus rhythm no longer present Intraventricular conduction delay no longer present Myocardial infarct finding still present Electronically Signed On 03-16-2021 8:00:13 [employer] by Roscoe Barber [email or web address] <ELECTRONICALLY SIGNED> By: Roscoe Barber MD, FACC 03/16/21 0800 1533 153 Roscoe Barber MD, FAC /EPI
== END | disposition home or self-care (01) ==
LOC: CATH 09:45
PROVIDERS: ATTEND Nuclear Medicine Nuclear Cardiology
DX: M80.08XA Age-related osteoporosis with current pathological fracture, vertebra(e), initial encounter for fracture (principal); M54.9 Dorsalgia, unspecified; I11.0 Hypertensive heart disease with heart failure; I50.9 Heart failure, unspecified; J44.9 Chronic obstructive pulmonary disease, unspecified; E78.5 Hyperlipidemia, unspecified; I42.9 Cardiomyopathy, unspecified; K21.9 Gastro-esophageal reflux disease without esophagitis; Z98.890 Other specified postprocedural states; Z79.899 Other long term (current) drug therapy; Z96.653 Presence of artificial knee joint, bilateral; Z82.49 Family history of ischemic heart disease and other diseases of the circulatory system; Z87.891 Personal history of nicotine dependence; Z90.710 Acquired absence of both cervix and uterus; Z88.0 Allergy status to penicillin; Z88.2 Allergy status to sulfonamides; Z88.8 Allergy status to other drugs, medicaments and biological substances

== ENCOUNTER → 2021-03-31 | Outpatient (CLI) | payer OTHER | LOC: SJCVC 11:40 | PROVIDERS: ATTEND Nuclear Medicine Nuclear Cardiology | DX: M80.08XA Age-related osteoporosis with current pathological fracture, vertebra(e), initial encounter for fracture (principal); I10 Essential (primary) hypertension; M54.6 Pain in thoracic spine; J44.9 Chronic obstructive pulmonary disease, unspecified; I25.10 Atherosclerotic heart disease of native coronary artery without angina pectoris; I11.0 Hypertensive heart disease with heart failure; I50.9 Heart failure, unspecified; J45.50 Severe persistent asthma, uncomplicated; K21.9 Gastro-esophageal reflux disease without esophagitis; J47.9 Bronchiectasis, uncomplicated; Z90.710 Acquired absence of both cervix and uterus; Z98.890 Other specified postprocedural states; Z79.82 Long term (current) use of aspirin; Z79.899 Other long term (current) drug therapy ==

== ENCOUNTER → 2021-04-29 | Outpatient (CLI) | payer OTHER | LOC: HYPER 08:19 | PROVIDERS: ATTEND Emergency Medicine | DX: S81.812A Laceration without foreign body, left lower leg, initial encounter (principal); R60.0 Localized edema; J44.9 Chronic obstructive pulmonary disease, unspecified; I13.0 Hypertensive heart and chronic kidney disease with heart failure and stage 1 through stage 4 chronic kidney disease, or unspecified chronic kidney disease; I50.40 Unspecified combined systolic (congestive) and diastolic (congestive) heart failure; N18.30 Chronic kidney disease, stage 3 unspecified; M51.36 Other intervertebral disc degeneration, lumbar region; E78.5 Hyperlipidemia, unspecified; K21.9 Gastro-esophageal reflux disease without esophagitis; M81.0 Age-related osteoporosis without current pathological fracture; F41.1 Generalized anxiety disorder; Z79.82 Long term (current) use of aspirin; Z87.891 Personal history of nicotine dependence; Z90.710 Acquired absence of both cervix and uterus; Z90.10 Acquired absence of unspecified breast and nipple; Z98.890 Other specified postprocedural states; W18.11XA Fall from or off toilet without subsequent striking against object, initial encounter; Y93.89 Activity, other specified; Y92.091 Bathroom in other non-institutional residence as the place of occurrence of the external cause; Y99.8 Other external cause status ==

== ENCOUNTER → 2021-05-06 | Outpatient (CLI) | payer OTHER | LOC: HYPER 13:57 | PROVIDERS: ATTEND Emergency Medicine | DX: S81.812D Laceration without foreign body, left lower leg, subsequent encounter (principal); L84 Corns and callosities; R60.0 Localized edema; I13.0 Hypertensive heart and chronic kidney disease with heart failure and stage 1 through stage 4 chronic kidney disease, or unspecified chronic kidney disease; I50.40 Unspecified combined systolic (congestive) and diastolic (congestive) heart failure; N18.30 Chronic kidney disease, stage 3 unspecified; M51.36 Other intervertebral disc degeneration, lumbar region; E78.5 Hyperlipidemia, unspecified; J44.9 Chronic obstructive pulmonary disease, unspecified; K21.9 Gastro-esophageal reflux disease without esophagitis; M81.0 Age-related osteoporosis without current pathological fracture; F41.1 Generalized anxiety disorder; Z79.82 Long term (current) use of aspirin; Z87.891 Personal history of nicotine dependence; Z90.710 Acquired absence of both cervix and uterus; Z90.10 Acquired absence of unspecified breast and nipple; Z98.890 Other specified postprocedural states; W18.11XD Fall from or off toilet without subsequent striking against object, subsequent encounter ==

== ENCOUNTER → 2021-05-20 | Outpatient (CLI) | payer OTHER | LOC: HYPER 08:39 | PROVIDERS: ATTEND Emergency Medicine | DX: S81.812D Laceration without foreign body, left lower leg, subsequent encounter (principal); L84 Corns and callosities; R60.0 Localized edema; I13.0 Hypertensive heart and chronic kidney disease with heart failure and stage 1 through stage 4 chronic kidney disease, or unspecified chronic kidney disease; I50.40 Unspecified combined systolic (congestive) and diastolic (congestive) heart failure; N18.30 Chronic kidney disease, stage 3 unspecified; M51.36 Other intervertebral disc degeneration, lumbar region; E78.5 Hyperlipidemia, unspecified; J44.9 Chronic obstructive pulmonary disease, unspecified; K21.9 Gastro-esophageal reflux disease without esophagitis; M81.0 Age-related osteoporosis without current pathological fracture; F41.1 Generalized anxiety disorder; Z79.82 Long term (current) use of aspirin; Z87.891 Personal history of nicotine dependence; Z90.710 Acquired absence of both cervix and uterus; Z90.10 Acquired absence of unspecified breast and nipple; W18.11XD Fall from or off toilet without subsequent striking against object, subsequent encounter ==

== ENCOUNTER → 2021-06-25 | Outpatient (CLI) | payer OTHER | LOC: SJCVCIMAG 11:40 | PROVIDERS: ATTEND Internal Medicine Cardiovascular Disease | DX: I08.8 Other rheumatic multiple valve diseases (principal); I45.10 Unspecified right bundle-branch block; R94.31 Abnormal electrocardiogram [ECG] [EKG]; I42.9 Cardiomyopathy, unspecified; I25.10 Atherosclerotic heart disease of native coronary artery without angina pectoris; J44.9 Chronic obstructive pulmonary disease, unspecified; I10 Essential (primary) hypertension; Z88.2 Allergy status to sulfonamides; Z88.0 Allergy status to penicillin; Z88.5 Allergy status to narcotic agent; Z88.8 Allergy status to other drugs, medicaments and biological substances; Z79.82 Long term (current) use of aspirin; Z79.899 Other long term (current) drug therapy; Z87.891 Personal history of nicotine dependence; Z72.89 Other problems related to lifestyle ==